=== PATIENT | female | born 1945 | race Caucasian/White ===

== ENCOUNTER → 2016-09-14 | Outpatient (CLI) | payer MEDICARE, OTHER | LOC: BFHH 11:56 | PROVIDERS: ATTEND Family Medicine | DX: K92.2 Gastrointestinal hemorrhage, unspecified (principal); I13.0 Hypertensive heart and chronic kidney disease with heart failure and stage 1 through stage 4 chronic kidney disease, or unspecified chronic kidney disease; N18.9 Chronic kidney disease, unspecified; I50.30 Unspecified diastolic (congestive) heart failure ==

== ENCOUNTER → 2017-01-04 | Outpatient (CLI) | payer MEDICARE, OTHER ==
--- NOTE | 2017-01-04 12:32 | MAM ---
History: Well woman exam. Date of exam: 01/04/2017// Services provided: Bilateral full field digital screening mammography. CAD, the images were reviewed with R2 computer aided detection. FINDINGS: Glandular tissue is scattered glandular contour. Comparison with 2013 exam. Stable asymmetry right breast. No dominant mass, architectural distortion or clustered microcalcification. IMPRESSION: Benign exam Recommendation: Routine annual mammography BIRAD CATEGORY: 2 BENIGN Electronically signed by: Shirley Cee MD 01/04/2017 12:31 PM CDT
== END ==
LOC: MAMMO 10:20
PROVIDERS: ATTEND Family Medicine
DX: Z12.31 Encounter for screening mammogram for malignant neoplasm of breast (principal)

== ENCOUNTER → 2017-03-28 | Outpatient (CLI) | payer MEDICARE, OTHER | LOC: GMAL 10:19 | PROVIDERS: ATTEND Family Medicine | DX: D51.3 Other dietary vitamin B12 deficiency anemia (principal); E55.9 Vitamin D deficiency, unspecified ==

== ENCOUNTER 2017-04-14 21:55 | Emergency (ER) | payer MEDICARE, OTHER ==
[2017-04-14] MEDS ORDERED: SODIUM CHLORIDE 0.9% 1000ML 1,000 ML IVS ONE (22:25)
--- NOTE | 2017-04-14 22:25 | ED.PDOC ---
History of Present Illness - General Chief Complaint: Abdominal Pain Stated Complaint: RUQ pain,itching Time Seen by Provider: 04/14/17 22:23 Information Source: patient Exam Limitations: no limitations - History of Present Illness Initial Comments: Brandy Suazo 72 y/o female stated that about 0830 h today started having sharp pains on her RLQ radn to her right shoulder.Took ex-lax thinking she is constipated and had 3 bowel movements but did not relieve above symptoms which got more steady and got worse .She was able to eat 3 meals today but did not worsen her pain or threw up.Denies also diarrhea stated her pain sometimes worse with taking deep breaths.She has history of cva,htn,heart disease. Abdominal Pain Onset Location: RUQ Pain Radiation: shoulder - right Quality: moderate, sharpness, steady Timing/Duration: 7-24 hours Improving Factors: nothing Worsening Factors: other - sometimes deep breaths Associated Symptoms: denies symptoms Review of Systems - Review of Systems Constitutional: States: no symptoms reported EENTM: States: no symptoms reported Respiratory: States: no symptoms reported Cardiology: States: no symptoms reported Gastrointestinal/Abdominal: States: see HPI Genitourinary: States: no symptoms reported Musculoskeletal: States: no symptoms reported Skin: States: no symptoms reported Past Medical History (General) - Patient Medical History Hx Seizures: No Hx Stroke: Yes Hx Dementia: No Hx Asthma: No Hx of COPD: Yes Hx Cardiac Disorders: Yes - stents Hx Congestive Heart Failure: No Hx Pacemaker: No Hx Hypertension: Yes Hx Thyroid Disease: No Hx Diabetes: No Hx Gastroesophageal Reflux: No Hx Renal Disease: No Hx Cancer: No Hx of HIV: No Hx Hepatitis C: No Hx MRSA: No Surgical History: Hysterectomy, other - hysterectomy,hernia repair - Vaccination History Hx Tetanus, Diphtheria Vaccination: No Hx Influenza Vaccination: Yes Hx Pneumococcal Vaccination: Yes - Social History Hx Tobacco Use: No Hx Chewing Tobacco Use: No Hx Alcohol Use: No Hx Substance Use: No Hx Substance Use Treatment: No Hx Depression: No Hx Physical Abuse: No Hx Emotional Abuse: No Hx Suspected Abuse: No - Female History Patient is a Female of Child Bearing Age (10 -59 yrs old): No Patient : No Family Medical History - Family History Father Family History: Unknown Living Status: Hx Family Hypertension: Yes - dad Hx Cardiac Disease: Yes - dad Hx Family Diabetes: Yes - dad Hx Family Cancer: Yes - dad-lungs; liver-mom Mother Living Status: Hx Cardiac Disease: Yes Hx Family;Other: nephrolithiasis Physical Exam - Physical Exam General Appearance: Alert, Anxious, No apparent distress Eyes, Ears, Nose, Throat Exam: PERRL/EOMI, normal ENT inspection Neck: non-tender, full range of motion, supple Respiratory: chest non-tender, lungs clear, normal breath sounds Cardiovascular/Chest: normal peripheral pulses, regular rate, rhythm, no murmur Peripheral Pulses: No deficit Gastrointestinal/Abdominal: normal bowel sounds, soft, no organomegaly, tenderness - RUQ no peritoneal signs Back Exam: normal inspection, no CVA tenderness, no vertebral tenderness Extremity: non-tender, normal inspection, no pedal edema, no calf tenderness Neurologic: no motor/sensory deficits, alert, oriented x 3, aphasia - expressive -deficit from previous cva Skin Exam: normal color, warm/dry Lymphatic: no adenopathy Progress - Progress Progress: 04/14/17 22:59 Vital Signs - 8 hr 04/14/17 22:04 Temperature 101 F H Pulse Rate [ 77 left] Respiratory 24 Rate Blood Pressure 125/87 [left] O2 Sat by Pulse 97 Oximetry 04/15/17 00:47 Recommend hospital admission but wants to go home but suggest need to follow up with Dr. Harrison his primary for md for HIDA SCAN to callup his office in am 12/[id number]/15/17 00:51 - Results/Orders Results/Orders: Laboratory Tests 04/14/17 04/14/17 04/14/17 22:29 22:29 22:29 WBC 10.8 RBC 4.05 L Hgb 12.2 Hct 36.8 MCV 90.9 MCH 30.1 MCHC 33.1 RDW 14.0 Plt Count 277 MPV 8.9 Absolute Neuts (auto) 7.80 H Absolute Lymphs (auto) 1.70 Absolute Monos (auto) 1.10 H Absolute Eos (auto) 0.10 Absolute Basos (auto) 0.10 Neutrophils % 72.3 Lymphocytes % 15.9 L Monocytes % 10.1 H Eosinophils % 0.7 L Basophils % 1.0 PT 27.5 H* INR 2.460 Sodium 136 Potassium 4.3 Chloride 104 Carbon Dioxide 22 Anion Gap 14.3 BUN 22 H Creatinine 1.03 BUN/Creatinine Ratio 21.4 H Random Glucose 111 H Serum Osmolality 276.0 Lactic Acid Calcium 8.4 Total Bilirubin 1.0 AST 16 ALT 14 Alkaline Phosphatase 116 Serum Total Protein 6.9 Albumin 2.9 L Globulin 4.0 H Albumin/Globulin Ratio 0.7 L Lipase 15 L Urine Color Urine Appearance Urine pH Ur Specific [place] Urine Protein Urine Glucose (UA) Urine Ketones Urine Blood Urine Nitrite Urine Bilirubin Urine Urobilinogen Ur Leukocyte Esterase Urine RBC Urine WBC Ur Epithelial Cells Urine Bacteria 04/14/17 04/14/17 23:00 23:00 WBC RBC Hgb Hct MCV MCH MCHC RDW Plt Count MPV Absolute Neuts (auto) Absolute Lymphs (auto) Absolute Monos (auto) Absolute Eos (auto) Absolute Basos (auto) Neutrophils % Lymphocytes % Monocytes % Eosinophils % Basophils % PT INR Sodium Potassium Chloride Carbon Dioxide Anion Gap BUN Creatinine BUN/Creatinine Ratio Random Glucose Serum Osmolality Lactic Acid 1.8 Calcium Total Bilirubin AST ALT Alkaline Phosphatase Serum Total Protein Albumin Globulin Albumin/Globulin Ratio Lipase Urine Color Yellow Urine Appearance Clear Urine pH 5.5 Ur Specific [place] 1.015 Urine Protein Negative Urine Glucose (UA) Negative Urine Ketones Negative Urine Blood Trace-intact H Urine Nitrite Negative Urine Bilirubin Negative Urine Urobilinogen 0.2 Ur Leukocyte Esterase Small H Urine RBC 3-5 H Urine WBC 3-5 H Ur Epithelial Cells 3-5 Urine Bacteria 1+ - EKG/XRAY/CT EKG: Sinus, Tachy, no ST T wave changes Comments: heart rate-101 XRAY: chest - no acute abnormalities CT: 2cm.gallstone 1cm.lesion (R) lobe liver dome suspect simple cyst CT Ordered: Yes - Abd/pelvis:stephan.perinephric stranding;small right pleural effusion Departure - Departure Clinical Impression: Abdominal pain Qualifiers: Abdominal location: right upper quadrant Qualified Code(s): R10.11 - Right upper quadrant pain Time of Disposition: 00:53 Disposition: Discharge to Home or Self Care Condition: Fair Departure Forms: ED Discharge - Pt. Copy, Patient Portal Self Enrollment Instructions: DI for Abdominal Pain-Adult Diet: low fat, low cholesterol, other - AVOID GREASY SPICY FOODS Referrals: Diego Harrison III, MD [Primary Care Provider] - 1-2 Weeks Prescriptions: RX: Promethazine HCl 25 mg PO Q6HRS PRN #20 tab PRN Reason: Nausea levoFLOXacin [Levaquin] 500 mg PO QDPC #7 tab Home Medications: Ambulatory Orders RX: Duloxetine HCl [Cymbalta] 60 mg PO DAILY 01/30/13 RX: Lisinopril 20 mg PO DAILY 01/30/13 RX: predniSONE [PredniSONE] 2 mg PO DAILY 01/30/13 RX: Warfarin Sodium [Coumadin] 6 mg PO DAILY 04/22/14 RX: amLODIPine BESYLATE [Norvasc] 5 mg PO DAILY 04/22/14 RX: Furosemide [Lasix] 40 mg PO DAILY 06/07/14 RX: Aspirin [Aspirin Adult Low Dose] 81 mg PO DAILY 04/28/16 RX: Montelukast Sodium 10 mg PO DAILY 04/28/16 Atorvastatin Calcium [Lipitor] 40 mg PO DAILY 07/18/16 Potassium Chloride [Potassium Chloride ER] 10 meq PO DAILY 07/18/16 RX: HYDROcodone 10MG/APAP 325MG [[place] 10/325] 1 tablet PO Q4HR PRN 04/14/17 RX: Pantoprazole Sodium 40 mg PO DAILY 04/14/17 RX: Promethazine HCl 25 mg PO Q6HRS PRN #20 tab 04/15/17 levoFLOXacin [Levaquin] 500 mg PO QDPC #7 tab 04/15/17 Additional Instructions: RETURN TO EMERGENCY ROOM NEEDED;Follow up with primary md Dr.J. Harrison in 04/15/2017 call for appointment
--- NOTE | 2017-04-14 22:48 | RAD ---
PROCEDURE: XR CHEST 1 VIEW HISTORY: pain COMPARISON: 06/30/2016 TECHNIQUE: Single projection of the chest was done. FINDINGS: The tip of the right-sided Mediport catheter terminates in the distal superior vena cava . There are no discrete airspace infiltrates, pneumothoraces or pleural effusions. The pulmonary vascularity is normal. The cardiomediastinal silhouette is stable. IMPRESSION: There is no acute pleural-parenchymal process seen in the imaged lung treviño. Location of Interpretation: Teleradiology Electronically signed by: Israel Villareal MD 04/14/2017 10:46 PM CDT Workstation: [id number]
[2017-04-14] MEDS ORDERED: PROCHLORPERAZINE INJ 10 MG/2 ML VIAL IV PRN (22:58)
[2017-04-14] MEDS ORDERED: MORPHINE SULFATE INJ 10 MG/ML VIAL IV ONE (22:58)
--- NOTE | 2017-04-15 00:21 | CT ---
EXAM: Abdomen/Pelvis w/Contrast CLINICAL INDICATION: 72-year-old female with generalized upper abdominal pain. COMPARISON: None. EXAMINATION: CT of the abdomen and pelvis was performed following intravenous administration of contrast. Oral contrast was not administered. Multiplanar reformatted images were provided. This exam was performed according to our departmental dose optimization program which includes use of automated exposure control, adjustment of the mA and/or kV according to patient size and/or use of iterative reconstruction technique. FINDINGS: Chest: Evaluation through the lung bases reveals trace right-sided pleural effusion without focal opacity, or pneumothorax. Heart size is within normal limits. No pericardial effusion. Small hiatal hernia or esophageal diverticulum. Abdomen and pelvis: The liver, gallbladder, pancreas, spleen, and bilateral adrenal glands are within normal limits. Central luminal focus of lamellated high density within the dependent gallbladder measuring 2 cm compatible with calculus. Subcentimeter focus of hypoattenuation present within the dome of the RIGHT lobe liver suggestive of simple cyst measuring 1 cm, however too small to accurately characterize. Bilateral perinephric stranding with slight haziness of the renal pelvis fat and areas of wedge-shaped hypoattenuation, particularly within the superior pole of the LEFT kidney raising the concern for pyelonephritis in the correct clinical setting. Punctate foci of calcification present throughout the spleen suggests sequela of prior granulomatous disease. The vessels reveal atherosclerotic calcification otherwise patent and normal in caliber. Inferior vena cava filter. No abdominopelvic lymph nodes are noted to be pathologically enlarged by CT measurement criteria. The bowel is within normal limits with extensive contrast material and fecal debris present throughout the large bowel. There is no abnormal bowel wall thickness or bowel dilation. No free air. No free abdominopelvic fluid collections. The appendix is nonvisualized. The osseous structures are revealed degenerative change. IMPRESSION: 1. Bilateral perinephric stranding with slight haziness of the renal pelvis fat and areas of wedge-shaped hypoattenuation, particularly within the superior pole of the LEFT kidney raising the concern for pyelonephritis in the correct clinical setting versus scarring or atypical appearance of renal cysts. 2. Small RIGHT pleural effusion. 3. 2 cm cholelithiasis. 4. Nonspecific hypoattenuating lesion showing 1 cm within the dome of the RIGHT lobe liver, suspected simple cyst however too small to accurately characterize. Electronically signed by: Carol Manley MD 04/15/2017 12:20 AM CDT Workstation: [id number]
[2017-04-15] MEDS ORDERED: levoFLOXacin 500MG IV 500 MG in PREMIX BAG 1 BAG IVPB ONE (00:41)
[2017-04-15] MEDS ORDERED: levoFLOXacin 500MG IV 100 ML IVPB ONE (00:44)
[2017-04-15] MEDS ORDERED: HYDROcodone 10MG/APAP 325MG 1 EA TAB PO ONE (00:52)
[2017-04-15 02:33] VITALS: BP 130/70; TEMP 98.9; O2SAT 94
== END 2017-04-15 01:50 | disposition home or self-care (01) ==
LOC: ER 21:55
DX: R10.11 Right upper quadrant pain (principal); J44.9 Chronic obstructive pulmonary disease, unspecified; I10 Essential (primary) hypertension; Z86.73 Personal history of transient ischemic attack (TIA), and cerebral infarction without residual deficits; Z98.61 Coronary angioplasty status
CPT/HCPCS: 36415; 71010; 74177; 80053; 81001; 83605; 83690; 85025; 85610; 87086; J0780; J1956; J2270; J7030

== ENCOUNTER 2017-04-16 07:09 | Inpatient (IN) | payer MEDICARE, OTHER ==
--- NOTE | 2017-04-16 07:23 | ED.PDOC ---
History of Present Illness - General Chief Complaint: Abdominal Pain Stated Complaint: Abdominal discomfort, fever Time Seen by Provider: 04/16/17 07:22 Information Source: patient Exam Limitations: no limitations - History of Present Illness Initial Comments: Brandy Suazo 72 y/o female stated that she cntinue to have ru q abdominal pain and fever since she was seen at [facility] #days ago .Unable to malke appointment with md yesterday.Work up done on her last visit had cholelithiasis but no obstruction also small liver cyst dome of lever,and bilateral perinephric stranding left >right. Abdominal Pain Onset Location: RUQ Pain Radiation: shoulder Quality: intermittent, sharpness, steady Timing/Duration: other - 3 days ago Improving Factors: nothing Worsening Factors: nothing Associated Symptoms: fever/chills Review of Systems - Review of Systems Constitutional: States: no symptoms reported EENTM: States: no symptoms reported Respiratory: States: no symptoms reported Cardiology: States: no symptoms reported Gastrointestinal/Abdominal: States: see HPI Genitourinary: States: no symptoms reported Musculoskeletal: States: no symptoms reported Skin: States: no symptoms reported Endocrine: States: no symptoms reported Hematologic/Lymphatic: States: no symptoms reported Past Medical History (General) - Patient Medical History Hx Seizures: No Hx Stroke: Yes Hx Dementia: No Hx Asthma: No Hx of COPD: Yes Hx Cardiac Disorders: Yes - stents Hx Congestive Heart Failure: No Hx Pacemaker: No Hx Hypertension: Yes Hx Thyroid Disease: No Hx Diabetes: No Hx Gastroesophageal Reflux: No Hx Renal Disease: No Hx Cancer: No Hx of HIV: No Hx Hepatitis C: No Hx MRSA: No Surgical History: other - hysterectomy,hernia repair,cardiac stents - Vaccination History Hx Tetanus, Diphtheria Vaccination: No Hx Influenza Vaccination: Yes Hx Pneumococcal Vaccination: Yes - Social History Hx Tobacco Use: No Hx Chewing Tobacco Use: No Hx Alcohol Use: No Hx Substance Use: No Hx Substance Use Treatment: No Hx Depression: No Hx Physical Abuse: No Hx Emotional Abuse: No Hx Suspected Abuse: No - Activities of Daily Living Grooming Ability: Independent Eating (Feeding) Ability: Independent Toileting Ability: Independent - Female History Patient : No Family Medical History - Family History Father Family History: Unknown Living Status: Hx Family Hypertension: Yes - dad Hx Cardiac Disease: Yes - dad Hx Family Diabetes: Yes - dad Hx Family Cancer: Yes - dad-lungs; liver-mom Mother Living Status: Hx Cardiac Disease: Yes Hx Family;Other: nephrolithiasis Physical Exam - Physical Exam General Appearance: Alert, Comfortable, No apparent distress Eyes, Ears, Nose, Throat Exam: PERRL/EOMI, normal ENT inspection, TMs normal, pharynx normal Neck: non-tender, supple, normal inspection Respiratory: chest non-tender, lungs clear, normal breath sounds Cardiovascular/Chest: normal peripheral pulses, regular rate, rhythm, no gallop , no murmur Peripheral Pulses: No deficit Gastrointestinal/Abdominal: normal bowel sounds, non tender, soft, tenderness - right upper quadrant Back Exam: normal inspection, no CVA tenderness, no vertebral tenderness Extremity: normal range of motion Neurologic: screen repairer crusher II-XII nml as tested, no motor/sensory deficits, alert, normal mood/affect, oriented x 3 Progress - Progress Progress: 04/16/17 08:24 Vital Signs - 8 hr 04/16/17 07:11 Temperature 99.4 F Pulse Rate [ 102 H Right Radial] Respiratory 22 Rate Blood Pressure 121/64 [Right Arm] O2 Sat by Pulse 95 Oximetry - Results/Orders Results/Orders: Laboratory Tests 04/16/17 04/16/17 04/16/17 07:59 07:59 07:59 WBC 8.7 RBC 3.79 L Hgb 11.5 L Hct 34.7 L MCV 91.6 MCH 30.3 MCHC 33.0 RDW 14.0 Plt Count 233 MPV 8.9 Absolute Neuts (auto) 5.90 Absolute Lymphs (auto) 1.40 Absolute Monos (auto) 1.10 H Absolute Eos (auto) 0.20 Absolute Basos (auto) 0.10 Neutrophils % 68.0 Lymphocytes % 16.2 L Monocytes % 12.5 H Eosinophils % 2.6 Basophils % 0.7 PT INR Sodium 136 Potassium 4.3 Chloride 105 Carbon Dioxide 23 Anion Gap 12.3 BUN 25 H Creatinine 1.31 H BUN/Creatinine Ratio 19.1 Random Glucose 122 H Serum Osmolality 277.7 Lactic Acid 1.5 Calcium 8.4 Total Bilirubin 1.5 H D AST 15 ALT 13 Alkaline Phosphatase 123 H Serum Total Protein 6.6 Albumin 2.6 L Globulin 4.0 H Albumin/Globulin Ratio 0.7 L Lipase 04/16/17 04/16/17 07:59 07:59 WBC RBC Hgb Hct MCV MCH MCHC RDW Plt Count MPV Absolute Neuts (auto) Absolute Lymphs (auto) Absolute Monos (auto) Absolute Eos (auto) Absolute Basos (auto) Neutrophils % Lymphocytes % Monocytes % Eosinophils % Basophils % PT 21.2 H* INR 1.890 Sodium Potassium Chloride Carbon Dioxide Anion Gap BUN Creatinine BUN/Creatinine Ratio Random Glucose Serum Osmolality Lactic Acid Calcium Total Bilirubin AST ALT Alkaline Phosphatase Serum Total Protein Albumin Globulin Albumin/Globulin Ratio Lipase [address] Rosales went to check and examined patient as well as reviewed ct abd/pelvis taken 3 days ago and labs today talked to patient and stated he will get in touch woth rail transportation operator hospitalist for admit. Departure - Departure Clinical Impression: snf (current) use of anticoagulants Abdominal pain Qualifiers: Abdominal location: right upper quadrant Qualified Code(s): R10.11 - Right upper quadrant pain Cholelithiasis NOS Qualifiers: Cholelithiasis location: gallbladder Cholecystitis presence: without cholecystitis Biliary obstruction: without biliary obstruction Qualified Code(s) : K80.20 - Calculus of gallbladder without cholecystitis without obstruction Time of Disposition: 10:14 Disposition: Admit Patient Condition: Fair Departure Forms: Patient Portal Self Enrollment Referrals: Diego Harrison III, MD [Primary Care Provider] - 1-2 Weeks Home Medications: Ambulatory Orders Duloxetine HCl [Cymbalta] 60 mg PO DAILY 01/30/13 Lisinopril 20 mg PO DAILY 01/30/13 predniSONE [PredniSONE] 2 mg PO DAILY 01/30/13 Warfarin Sodium [Coumadin] 6 mg PO DAILY 04/22/14 amLODIPine BESYLATE [Norvasc] 5 mg PO DAILY 04/22/14 Furosemide [Lasix] 40 mg PO DAILY 06/07/14 Aspirin [Aspirin Adult Low Dose] 81 mg PO DAILY 04/28/16 Atorvastatin Calcium [Lipitor] 40 mg PO DAILY 07/18/16 Potassium Chloride [Potassium Chloride ER] 10 meq PO DAILY 07/18/16 HYDROcodone 10MG/APAP 325MG [[place] 10/325] 1 tablet PO Q4HR PRN 04/14/17 Promethazine HCl 25 mg PO Q6HRS PRN #20 tab 04/15/17 levoFLOXacin [Levaquin] 500 mg PO QDPC #7 tab 04/15/17 Decision To Admit - Decistion To Admit Decision to Admit Reason: Admit from ER Decision to Admit Date: 04/16/17 - D/W Dr. Rosales for admit Decision to Admit Time: 10:39
[2017-04-16] MEDS ORDERED: PROMETHAZINE HCL INJ 25 MG/ML VIAL IM ONE (07:24)
[2017-04-16] MEDS ORDERED: MORPHINE SULFATE INJ 10 MG/ML VIAL IV ONE (07:24)
[2017-04-16] MEDS ORDERED: HEPARIN SODIUM 100 U/ML 5 ML SYG IV ONE (07:52)
[2017-04-16] MEDS ORDERED: SODIUM CHLORIDE 0.9% 1000ML 1,000 ML IVS ONE (08:26)
--- NOTE | 2017-04-16 10:43 | HP ---
SUPERVISING PHYSICIAN: Reji Stallworth M.D. CHIEF COMPLAINT: Abdominal pain. HISTORY OF PRESENT ILLNESS: Ms. Suazo is a 72 year-old female patient that presented to the Emergency Room today after she continued to have right upper quadrant pain and fever since she was last seen in the E. . 48 hours previously for similar symptoms. She was supposed to go after she left the . . this previous visit to see her primary care provider on Tuesday but was unable to do so. She was reporting some diffuse abdominal pain but no fever or chills. She had a CT of the abdomen on previous visit as well as the pelvis with IV contrast that revealed no laboratory changes. There were some changes consistent with pyelonephritis bilaterally. She was noted to have a gallstone and her right colon was filled with a large amount of stool. She was denying any fevers on admission. Laboratory studies today in the Emergency Department showed a white count of 8.7 with normal differential. Hemoglobin 11.5, hematocrit 34.7, platelet count 233,000. Chemistries showed normal electrolytes with potassium 4.3, BUN was elevated at 25 with creatinine 1.31. Bilirubin as well was elevated at 1.5, magnesium was decreased at 1.7. She also had an elevated alkaline phosphatase. Urinalysis on previous admission on 04/14/17 at the [facility] showed on the microscopic 1+ bacteria with 3 to 5 WBCs. Culture is still pending. She was sent home at that time on Levaquin which she has had 2 doses of. Given the persistence of her abdominal pains and concerns for developing bilateral pyelonephritis, Dr. Jean-Baptiste, . . physician, consulted Dr. Rosales in the Emergency Department who then recommended the patient be admitted for further treatment and evaluation, and close monitoring. PAST MEDICAL HISTORY: 1. Chronic obstructive pulmonary disease diagnosed first in 2010. 2. Gastroesophageal reflux disease. 3. Raynaud's syndrome with ischemic cerebrovascular accident in the left basal ganglia with a hemorrhage extending into the left MCA following TPA administration in April 2013. 4. History of deep venous thrombosis in April 2013 requiring IVC filter placement. 5. Congestive heart failure, chronic, diastolic dysfunction with last echocardiogram noted to be on 08/14/15 with an ejection fraction of 60%. 6. Chronic constipation secondary to chronic opioid medication usage. 7. Anxiety and depression. PAST SURGICAL HISTORY: 1. Hysterectomy. 2. Hiatal hernia repair in 2009. 3. Right shoulder rotator cuff in 2008. 4. Left rotator cuff repair. 5. Subacromial depression. 6. Distal clavicle resection in April 2012. 7. IVC filter placement in April 2013. 8. Cataract surgery in 2013. 9. Total knee arthroplasty of the right knee April 2014. CURRENT MEDICATIONS: 1. Prednisone 10 mg daily. 2. Course of Levaquin 500 mg, only received 2 doses. 3. Norvasc 5 mg daily. 4. Coumadin 6 mg daily. 5. Promethazine 25 mg 2 every 6 hours as needed for nausea. 6. Potassium chloride extended release 10 mEq. 7. Lisinopril 20 mg daily. 8. Elgin 10/325 one tablet every 4 hours p.r.n. for pain. 9. Lasix 40 mg daily. 10. Cymbalta 60 mg daily. 11. Lipitor 40 mg daily. 12. Daily aspirin 81 mg. ALLERGIES: NO KNOWN DRUG ALLERGIES. FAMILY HISTORY: Both father and mother are . Father at age 70 from myocardial infarction and lung cancer. Mother at 77 from lung cancer. 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 She has a history of past smoking 1 to 2 packs per day for 45 years but stopped in 2008. Currently she is a nondrinker. REVIEW OF SYSTEMS: CONSTITUTIONAL: Denies any weakness, dizziness or general malaise. HEENT: No reported sinus congestion. RESPIRATORY: Does note she has a cough that is nonproductive and has had some mild shortness of breath. CARDIOVASCULAR: She has a history of congestive heart failure but no reported lower extremity edema, chest pains, palpitations or syncopal episodes. GASTROINTESTINAL: As noted in the History of Present Illness, abdominal pains with moderate constipation. GENITOURINARY: Denies any dysuria or any other urinary complaints. NEUROLOGIC: Denies any dizziness, weakness, focalizing or localizing neurologic deficits. She does have a history of CVA with some right sided weakness previously and utilizes a walker. PHYSICAL EXAMINATION: VITAL SIGNS: Temperature 97.8, pulse 77, blood pressure 137/81, respirations 16 , satting 97% on room air. Admission weight 124.1 kg. GENERAL: The patient appears to be in no acute distress and is comfortable. She is well nourished and well hydrated, moderately obese. HEENT: Tympanic membranes are clear bilaterally. Oropharynx is pink and moist without any lesions. NECK: Supple, non-tender with full range of motion. There was no jugular venous distention noted. CHEST: Lungs were diminished towards the bases laterally and toward the posterior aspect with some mild inspiratory and expiratory wheezing. BACK: She has bilateral CVA tenderness. ABDOMEN: Soft, obese, mildly distended with some diffuse tenderness more so on the right side with some right upper quadrant pain as well extending down to the right lower quadrant. Bowel sounds were normal. EXTREMITIES: No clubbing, cyanosis or edema. NEUROLOGIC: She is alert and oriented times three. Facial features were symmetrical. Extraocular movements are within normal limits. Cranial nerves II -XII are grossly intact. LABORATORY: CBC showed normal white count at 8.7, hemoglobin 11.5, hematocrit 34.7, platelet count 233,000. Differential showed to be without a left shift. Coagulation studies showed 21.2 PT with an INR of 1.89. Chemistries revealed normal electrolytes with potassium 4.3, BUN was slightly elevated at 25, creatinine 1.3. Lactic acid was 1.5. Total bilirubin was slightly elevated at 1.5 as well as alkaline phosphatase at 123. Troponin, magnesium and BNP were pending. Lipase was 22. MICROBIOLOGY: Urine culture is pending both from 04/14/17 in the E. R. as well as on current admission with the patient having been on antibiotics for 48 hours prior to urine collection. She has 2 sets of blood cultures that are pending. RADIOLOGY: Chest x-ray was pending. She had an abdominal and pelvic CT on 11/26 and per radiology interpretation there was noted bilateral perinephric stranding with slight haziness of the renal pelvis, areas of wedge shaped hypoattenuation particularly in the left kidney raising concerns for pyelonephritis. Also of note was a right small pleural effusion as well as 2 cm cholelithiasis. ASSESSMENT: 1. Abdominal pain right upper quadrant with some cholecystitis as noted on previous CT study as well as concerns for developing pyelonephritis with the patient having been on antibiotics for 48 hours and having failed to improve symptomatically with cultures pending. 2. Obstipation as noted on abdominal CT scan in a patient with a chronic history of constipation secondary to opioid medication. 3. Chronic obstructive pulmonary disease with some concern for exacerbation with the patient having some inspiratory and expiratory wheezing on admission. 4. Gastroesophageal reflux disease. 5. History of Raynaud's syndrome with a previous ischemic cerebrovascular accident in the left basal ganglia and hemorrhage extending to the left MCA after she had TPA administration in April 2013. 6. History of deep venous thrombosis in April 2013 with IC filter placement and currently on Coumadin. 7. Chronic congestive heart failure, diastolic dysfunction with last echocardiogram in 2014 with ejection fraction noted to be 60% with no obvious signs of exacerbation on admission. 8. Anxiety and depression. 9. Obesity with a body mass index of 45.5 kg. PLAN: The patient will be admitted to the hospital. Will get a consultation by Dr. Rosales to help further manage the patient's condition and management of abdominal pains. She has been on Levaquin. Will continue this dosage renally dosed given her current creatinine and renal function. Will await urine cultures. She will be on a clear liquid diet with morphine and Zofran as needed for pain and nausea. In efforts to help with the obstipation by way of catharsis, will start her with a dose of Milk of Magnesia followed-up with a soap suds enema. Will anticipate length of stay to be 2 to 3 days. Until then , continue to monitor and treat appropriately. #[id number] [facility]
--- NOTE | 2017-04-16 10:56 | CONS ---
DATE OF CONSULTATION: 04/16/17 HISTORY OF PRESENT ILLNESS: The patient is a 72 year-old female who was in the Emergency Room 2 days ago, the 3rd, with right sided abdominal pain and some diffuse abdominal pain without fever or chills. CT scan of the abdomen and pelvis was performed with IV contrast which revealed no inflammatory changes, although there were some changes consistent with pyelonephritis bilaterally. She also had a gallstone and her right colon was filled with stool. She is a relatively poor historian due to a previous stroke and her is not with her currently. The patient denies fever or chills. States that it hurts to take a deep breath, it hurts to move. There is no history of hepatitis or jaundice according to the patient. The patient does have a port I believe only for poor peripheral vascular access in the history of multiple hospitalizations. PAST MEDICAL HISTORY: 1. No significant abdominal pathology. 2. Urinary tract infections in the past. 3. Stroke, is on Coumadin for that. 4. Right sided venous access port. CURRENT MEDICATIONS: Listed in the nursing records. ALLERGIES: NO KNOWN DRUG ALLERGIES. FAMILY HISTORY: Noncontributory. REVIEW OF SYSTEMS: Again, no history of fatty food intolerance, hepatitis, jaundice, change in her bowel habits, specifically no melenic stools, blood per rectum and she has not vomited blood. She has noticed no blood in her urine. She does have problems with her memory associated with her stroke. PHYSICAL EXAMINATION: VITAL SIGNS: Afebrile and normotensive. GENERAL: The patient is awake, alert, cooperative and in mild to moderate distress. HEENT: Reveals the sclera to be nonicteric. Mucous membranes are moist. NECK: Without adenopathy. BACK: Bilateral CVA tenderness. CHEST: Equal breath sounds anteriorly. ABDOMEN: Mildly distended, diffusely tender, worse in the right side, right upper quadrant worse than right lower quadrant. Bowel tones are present. PELVIC AND RECTAL: Examinations are deferred. EXTREMITIES: Without clubbing, cyanosis or edema. LABORATORY: Normal white count and hemoglobin. Creatinine is noted to be 1.3. Liver functions reveal mildly elevated alkaline phosphatase and bilirubin. CT scan from 2 days ago reveals no inflammatory process involving the gallbladder, but at least a single large stone. No dilation of the duct. There is perinephric stranding associated with the left kidney and somewhat on the right side. She has a small right pleural effusion and she has a large amount of stool, especially in the right colon. Urinalysis reveals 3 to 5 white cells and red cells, 2 to 3+ bacteria, culture is pending. IMPRESSION: 1. Abdominal pain, bilateral CVA tenderness, abnormal CT scan, and obstipation. PLAN: I believe that the patient should be admitted, started on antibiotics to cover her urine and work on a catharsis from both above and below. Await the results of the urine culture. #[id number] [facility]
[2017-04-16] MEDS ORDERED: MAGNESIUM HYDROXIDE 30 ML UD PO ONE (11:23)
[2017-04-16] MEDS ORDERED: ONDANSETRON INJ 4 MG/2 ML VIAL IV PRN (11:29)
[2017-04-16] MEDS ORDERED: MAGNESIUM HYDROXIDE 30 ML UD PO PRN (11:29)
[2017-04-16] MEDS ORDERED: ACETAMINOPHEN 325 MG TAB PO PRN (11:29)
[2017-04-16] MEDS ORDERED: levoFLOXacin 250MG IV 250 MG in PREMIX BAG 1 BAG IVPB SCH (11:30)
[2017-04-16] MEDS ORDERED: IV SET AND CAP CHANGE INJ INJ SCH (11:30)
[2017-04-16] MEDS ORDERED: levoFLOXacin 250MG IV 50 ML IVPB ONE (11:39)
[2017-04-16] MEDS ORDERED: LEVALBUTEROL NEBS 1.25 MG/3 ML VIAL NEB PRN (12:35)
--- NOTE | 2017-04-16 13:33 | RAD ---
PROCEDURE: Chest,2 Views CLINICAL HISTORY: RUQ abdominal pain INDICATION: Same as above COMPARISON: 04/14/2017 TECHNIQUE: PA and and lateral chest radiographs were obtained. FINDINGS: The right-sided Mediport catheter is stable. There is presence of small right-sided pleural effusion and bilateral vascular congestion There are no pneumothoraces or airspace infiltrates The cardiomediastinal silhouette is unremarkable for patient's age and sex. IMPRESSION: There is presence of small right-sided pleural effusion and bilateral vascular congestion Electronically signed by: Israel Villareal MD 04/16/2017 1:31 PM CDT Workstation: [id number]
[2017-04-16] MEDS: KCL 20MEQ/0.45% NS 1,000 ML IVS PRN (15:55)
[2017-04-16] MEDS: LEVALBUTEROL NEBS 1.25 MG/3 ML VIAL NEB SCH ×2 (15:59→23:45)
[2017-04-16] MEDS: MORPHINE SULFATE INJ 10 MG/ML VIAL IV PRN ×2 (17:08→22:11)
[2017-04-16] MEDS: SODIUM CHLORIDE 0.9% (FLUSH) 10 ML SYG IV PRN (22:11)
[2017-04-17] MEDS: MORPHINE SULFATE INJ 10 MG/ML VIAL IV PRN (06:42)
[2017-04-17] MEDS: SODIUM CHLORIDE 0.9% (FLUSH) 10 ML SYG IV PRN (06:42)
[2017-04-17] MEDS: KCL 20MEQ/0.45% NS 1,000 ML IVS PRN ×2 (07:53→23:54)
[2017-04-17] MEDS: LEVALBUTEROL NEBS 1.25 MG/3 ML VIAL NEB SCH ×3 (08:14→20:44)
[2017-04-17] MEDS ORDERED: diphenhydrAMINE HCL 25 MG CAP ONE (08:48)
[2017-04-17] MEDS ORDERED: diphenhydrAMINE HCL 25 MG CAP PO ONE (08:50)
[2017-04-17] MEDS ORDERED: MAGNESIUM HYDROXIDE 30 ML UD PO ONE (09:24)
[2017-04-17] MEDS: levoFLOXacin 500 MG TAB PO SCH (09:49)
--- NOTE | 2017-04-17 10:21 | RAD ---
PROCEDURE: Abdomen Series Clinical History: constipation Indication: Same as above Comparison: CT of the abdomen and pelvis done on 04/14/2017 Technique: Two views of the abdomen and pelvis were done. In addition single frontal projection of the chest was done Findings: The tip of the right-sided Mediport catheter terminates in the distal superior vena cava. There is presence of mild right basilar infiltrate/atelectasis and probable tiny right-sided pleural effusion. Note is made of an IVC filter in the mid abdomen. There is no gross evidence of free air in the abdomen or the pelvis . The small and large bowel gas pattern does not show any evidence of obstruction, ileus or bowel wall thickening. There is no visualization of radiopaque calculi in the outline of the urinary tract. There is no significant constipation Impression: Normal bowel gas pattern There is presence of mild right basilar infiltrate/atelectasis and probable tiny right-sided pleural effusion. Electronically signed by: Israel Villareal MD 04/17/2017 10:19 AM CDT Workstation: [id number]
[2017-04-17] MEDS ORDERED: WARFARIN SODIUM 6 MG PO SCH (16:45)
--- NOTE | 2017-04-17 16:46 | PCM.CORE ---
Physician DVT/VTE - Prophylaxis Currently: Patient already on anticoagulation therapy - Nurse DVT Assessment & Total Each Risk Factor Represents 3 Points: Hx of DVT/PE, Medical PT with Hx of CO, CHF, Severe infection/sepsis Each Risk Factor Represents 2 Points: Age 60-74 Each Risk Factor is 1 Point: Obesity (BMI >25) DVT Assessment Score: 9 - 5 or more Very High Risk Treatments: Early Ambulation *, Sequential Compression Device Pharmacological: Warfarin daily
[2017-04-17] MEDS ORDERED: WARFARIN SODIUM 3 MG TAB ONE (17:20)
[2017-04-17] MEDS ORDERED: WARFARIN SODIUM 3 MG TAB PO SCH (17:30)
--- NOTE | 2017-04-17 18:43 | PN ---
DATE: 04/17/17 SUPERVISING PHYSICIAN: Reji Stallworth M.D. SUBJECTIVE: The patient notes her pain is much less than yesterday. She did have good results with Milk of Magnesia and had several bowel movements that were large in nature. She remains afebrile and is tolerating antibiotic therapy without any complications. OBJECTIVE: VITAL SIGNS: Temperature 97.7, pulse 94, blood pressure 145/66, respirations 16, satting 96% on room air. I's and O's show a positive balance of 2002 with 2270 in, 275 out, although she has had several voids that were not measured. Weight is 126.9 kg. CHEST: Lungs are clear to auscultation. There is no notable wheezing. She is diminished bilaterally towards the bases. HEART : Regular rate and rhythm. ABDOMEN: Obese, soft with some continued mild tenderness noted over the right upper quadrant on deep palpation, but no rebound tenderness. EXTREMITIES: No clubbing, cyanosis or edema. NEUROLOGIC: She is alert and oriented times three. LABORATORY: Normal white count at 7.6, hemoglobin 10.3, hematocrit 31.0, platelet count is 236,000. Differential shows to be within normal limits. Chemistries show normal electrolytes with potassium 4.3, BUN 24, creatinine 1.29. Bilirubin remains slightly elevated at 1.5. Other liver functions showed to be within normal limits. RADIOLOGY: Repeat abdominal x-ray today per radiology interpretation shows normal bowel gas pattern and the presence of mild right basilar infiltrate, probable tiny right sided pleural effusion. ASSESSMENT: 1. Abdominal pain right upper quadrant with some cholecystitis as noted on previous CT study with concerns initially for developing pyelonephritis in a patient having been on recent antibiotic therapy for the last 48 hours, but having failed to improve symptomatically with culture results still pending. 2. Obstipation as noted on abdominal CT scan in a patient with a chronic history of constipation secondary to opioid medications contributing to some of her right upper quadrant pain showing good catharsis with Milk of Magnesia. 3. Chronic obstructive pulmonary disease with some mild exacerbation with the patient having some initially inspiratory and expiratory wheezing on admission but showing good improvement with bronchodilator therapy. 4. Gastroesophageal reflux disease. 5. History of Raynaud's syndrome with a previous ischemic cerebrovascular accident in the left basal ganglia and hemorrhage extending to the left MCA after she had TPA administration in April of 2013. 6. History of deep venous thrombosis in 2012 with an ICV filter placement on chronic Coumadin therapy. 7. Chronic congestive heart failure, diastolic dysfunction with last echocardiogram in 2014 showing an ejection fraction noted to be 60% with no obvious signs of exacerbation on this admission. 8. Anxiety and depression. 9. Obesity with body mass index of 45.5. PLAN: The patient will be advanced to a low fat diet. Will continue with Milk of Magnesia as per Dr. Rosales's directions, and will continue to follow the patient and monitor closely. Will await final culture results and continue with antibiotic therapy with Levaquin and plan to transition her to p.o. Levaquin today. Will plan to monitor Coumadin with a repeat PT and INR in the morning. Anticipate discharge possibly tomorrow or the next. Until then, continue to monitor and treat appropriately. #[id number] [facility]
[2017-04-18 02:29] VITALS: TEMP 98
[2017-04-18 05:26] VITALS: BP 129/73; O2SAT 96
--- NOTE | 2017-04-18 07:14 | RAD ---
EXAM DESCRIPTION: Abdomen Flat Upright CLINICAL HISTORY: 72 years Female, constipaton COMPARISON: None. FINDINGS: A right-sided Mediport catheter is present but only partially visualized. There is a probable small right-sided pleural effusion. No free suboptimally gas or intra-abdominal air-fluid level. An IVC filter is present. There is a moderate amount of stool and gas scattered throughout the colon without small bowel dilation. No suspicious intra-abdominal calcification or mass. Degenerative changes in the lumbar spine including mild convex leftward scoliosis. IMPRESSION: Moderate amount of colonic stool and gas, but no obstruction, pneumoperitoneum or other acute intra-abdominal abnormality. Tiny right pleural effusion. Electronically signed by: Vaughn Bella MD 04/18/2017 7:13 AM CDT Workstation: [id number]
[2017-04-18] MEDS: levoFLOXacin 500 MG TAB PO SCH (08:28)
[2017-04-18] MEDS: LEVALBUTEROL NEBS 1.25 MG/3 ML VIAL NEB SCH (08:32)
[2017-04-18] MEDS ORDERED: ASPIRIN EC 81 MG TAB PO SCH (09:00)
[2017-04-18] MEDS ORDERED: predniSONE 1 MG TAB PO SCH (09:00)
[2017-04-18] MEDS ORDERED: ATORVASTATIN 20 MG TAB PO SCH (09:00)
[2017-04-18] MEDS ORDERED: LISINOPRIL 10 MG TAB PO SCH (09:00)
[2017-04-18] MEDS ORDERED: FUROSEMIDE 40 MG TAB PO SCH (09:00)
[2017-04-18] MEDS ORDERED: DULoxetine HCL 30 MG CAP PO SCH (09:00)
[2017-04-18] MEDS ORDERED: amLODIPine BESYLATE 5 MG TAB PO SCH (09:00)
[2017-04-18] MEDS ORDERED: POTASSIUM CHLORIDE 10 MEQ TAB PO SCH (09:00)
--- NOTE | 2017-04-18 13:50 | DS ---
DISCHARGE DIAGNOSIS: 1. Acute abdominal pain, primarily right upper quadrant with evidence of cholecystitis noted o a prior CT scan, but also evidence radiographically of pyelonephritis, yet no culture positivity noted. 2. Fecal impaction with obstipation, possibly contributing to abdominal discomfort, significantly assisted by bowel movements. 3. Chronic obstructive pulmonary disease with some mild exacerbation recently, showing improvement with bronchodilator therapy. 4. History of gastroesophageal reflux disease. 5. History of Raynaud's syndrome with a history of previous ischemic cerebrovascular occlusion involving the left basal ganglia and hemorrhage extending to the left middle cerebral artery after she had TPA administration in April of 2013. 6. History of deep venous thrombosis with an IVC filter placed, currently on Coumadin therapy. 7. Chronic congestive heart failure with diastolic dysfunction with last echocardiogram in 2014 having an ejection fraction noted to be 60%. 8. Chronic anxiety and depression. 9. Chronic obesity with body mass index over 45. HISTORY OF PRESENT ILLNESS: This 72-year-old, white female was admitted to the hospital via the Emergency Room because of abdominal pain, primarily located in the right upper quadrant. The discomfort worsened to the point of concern with obstipation as well as gallbladder disease as well as possible underlying pyelonephritis requiring further evaluation and support. The patient was admitted to the hospital with close clinical followup necessary. She was treated with parenteral antibiotic therapy pending culture results. She was admitted for GI rest, which was changed to slowly advancing of diet as tolerated prior to her discharge on the day of discharge. LABORATORY: White count remained normal with hemoglobin dropping from 11.5 to 9.9 with 58% neutrophils. INR 2 on Coumadin therapy. Chemistries showed electrolytes within normal limits, BUN 25 decreasing to 20, creatinine down to 1.12 at discharge. Calcium 8.1, magnesium 1.7, bilirubin 1.5 down to 0.8 with normal enzymes at the time of discharge. Troponin 0. Beta natriuretic peptide 19. Albumin 2.5, lipase 22. Urinalysis showed a trace of leukocyte esterase. Urine, blood and sputum cultures were negative. RADIOLOGY: Chest x-ray showed a small right sided pleural effusion. Abdominal x-ray showed normal gas pattern. HOSPITAL COURSE: The patient was feeling much improved on the day of discharge after having some significant bowel movements on the previous day. She was ambulating and tolerating her soft diet quite well and was ready to have continued followup in the outpatient clinic. PLAN: The patient will be discharged home to have followup with Dr. Harrison in the clinic in the next 7 to 10 days. Drink adequate fluids of 1 to 1-1/2 quarts per day, yet avoid drinking excessive fluids which would be over that amount. Observe weight changes on a weekly basis. Avoid constipation. May try MiraLAX to assist with preventing constipation. May try yogurt as a probiotic daily. She will have continued followup with Dr. Harrison and Dr. Rosales because of the possibility of the underlying cholecystitis contributing to some of her symptoms. Return if not improving. [facility][id number] [facility]
== END 2017-04-18 12:00 | disposition home or self-care (01) | DRG 445 ==
LOC: ER 07:09 → MS 10:42 → UNDOADMOB 10:42 → MS 10:43 → OBSVTOIN 10:43 → INTOOBSV 04-17 10:42 → UNDODISOB 04-18 12:00
PROVIDERS: ADMIT Nurse Practitioner Family; ATTEND Emergency Medicine
DX: K81.9 Cholecystitis, unspecified (principal); N12 Tubulo-interstitial nephritis, not specified as acute or chronic; J44.1 Chronic obstructive pulmonary disease with (acute) exacerbation; I50.32 Chronic diastolic (congestive) heart failure; Z68.42 Body mass index [BMI] 45.0-49.9, adult; K56.41 Fecal impaction; K21.9 Gastro-esophageal reflux disease without esophagitis; F41.9 Anxiety disorder, unspecified; F32.9 Major depressive disorder, single episode, unspecified; E66.9 Obesity, unspecified; K59.03 Drug induced constipation; T40.2X5A Adverse effect of other opioids, initial encounter; Y92.009 Unspecified place in unspecified non-institutional (private) residence as the place of occurrence of the external cause; Z96.651 Presence of right artificial knee joint; Z79.52 Long term (current) use of systemic steroids; Z79.01 Long term (current) use of anticoagulants; Z79.82 Long term (current) use of aspirin; Z79.899 Other long term (current) drug therapy; Z87.891 Personal history of nicotine dependence; Z86.718 Personal history of other venous thrombosis and embolism; Z86.73 Personal history of transient ischemic attack (TIA), and cerebral infarction without residual deficits; Z95.828 Presence of other vascular implants and grafts

== ENCOUNTER → 2017-05-05 | Outpatient (CLI) | payer MEDICARE, OTHER ==
--- NOTE | 2017-05-09 08:25 | US ---
Study: Abdominal ultrasound. Indication: GENERALIZED ABDOMINAL PAIN Comparison: None Technique: Multiplanar, multi sequence sonogram of the abdomen obtained. Findings: The liver is normal in echogenicity without discrete mass. Multiple gallstones present measuring up to 2 cm. No gallbladder wall thickening or pericholecystic edema. Sonographic Wood sign positive. No intrahepatic biliary ductal dilatation. The common bile duct measures 3 mm in diameter. The bilateral kidneys are appropriate in echogenicity without hydronephrosis or nephrolithiasis. 4.4 cm left renal cyst. The visualized portions of the aorta and inferior vena cava are normal. The pancreas unremarkable. The spleen is normal. Impression: Cholelithiasis with a positive sonographic Wood sign. Acute cholecystitis should be considered. Electronically signed by: Wilian Davalos MD 05/09/2017 8:24 AM CDT
== END ==
LOC: US 14:48
PROVIDERS: ATTEND Family Medicine
DX: K80.20 Calculus of gallbladder without cholecystitis without obstruction (principal)

== ENCOUNTER → 2017-05-12 | Outpatient (CLI) | payer MEDICARE, OTHER ==
--- NOTE | 2017-05-13 11:27 | NM ---
EXAM DESCRIPTION: Hepatobiliary w/CCK CLINICAL HISTORY: RUQ PN COMPARISON: Ultrasound abdomen 05/05/2017. TECHNIQUE: Patient was given 8.0 mCi of technetium 99 M mebrofenin (Choletec) radiopharmaceutical IV. Anterior gamma camera images were obtained of the right upper quadrant at one minute intervals for 42 minutes . The patient was then given fatty meal, containing 30 g of fat. Gallbladder ejection fraction was evaluated by measuring diminishing radioactivity in the gallbladder, over 30 min interval. FINDINGS: Timely visualization of the entire liver after administration of radiopharmaceutical. No focal regions of increased or decreased activity. Timely visualization of intrahepatic and extrahepatic biliary ducts and the gallbladder. After drinking the fatty meal, peak activity in the gallbladder was approximately three minutes after ingestion. Lowest amount of activity in the gallbladder approximately 25 minutes after ingestion. Decrease in activity during this time was 71%. IMPRESSION: 1. No intrahepatic or extrahepatic biliary dilatation with visualization of the gallbladder and small bowel. 2. Normal gallbladder ejection fraction. Electronically signed by: Holden Peralta MD 05/13/2017 11:26 AM CDT
== END ==
LOC: NM 14:34
PROVIDERS: ATTEND Family Medicine
DX: R10.11 Right upper quadrant pain (principal)
CPT/HCPCS: 78227; A9537

== ENCOUNTER → 2017-06-30 | Outpatient (CLI) | payer MEDICARE, OTHER | END | disposition home or self-care (01) | LOC: GMAL 10:41 | PROVIDERS: ATTEND Family Medicine | DX: E55.9 Vitamin D deficiency, unspecified (principal) ==

== ENCOUNTER → 2017-10-06 | Outpatient (CLI) | payer MEDICARE, OTHER | LOC: LAB.O 08:26 | PROVIDERS: ATTEND Internal Medicine Infectious Disease | DX: D80.1 Nonfamilial hypogammaglobulinemia (principal) ==

== ENCOUNTER → 2017-12-28 | Outpatient (CLI) | payer MEDICARE, OTHER | LOC: BFHH 10:30 | PROVIDERS: ATTEND Family Medicine | DX: I13.0 Hypertensive heart and chronic kidney disease with heart failure and stage 1 through stage 4 chronic kidney disease, or unspecified chronic kidney disease (principal); I50.30 Unspecified diastolic (congestive) heart failure; N18.9 Chronic kidney disease, unspecified; E07.9 Disorder of thyroid, unspecified; E11.9 Type 2 diabetes mellitus without complications; E55.9 Vitamin D deficiency, unspecified; E78.5 Hyperlipidemia, unspecified; D64.9 Anemia, unspecified; Z79.01 Long term (current) use of anticoagulants ==

== ENCOUNTER → 2018-01-05 | Outpatient (CLI) | payer MEDICARE, OTHER ==
--- NOTE | 2018-01-09 10:11 | MAM ---
EXAM DESCRIPTION: 3D Screening BILATERAL : Digital Mammography. CLINICAL HISTORY: 72 years Female SCREEN . No complaints. No family history breast cancer. Postmenopausal. Taking HRT 5 or more years ago. Left breast biopsy. COMPARISON: 2-D digital screening bilateral study 01/04/2017. Also screening study on 08/14/2015. Report from prior examination also reviewed. TECHNIQUE: Bilateral CC and MLO projection full-field images, 3-D tomosynthesis digital mammographic technique. Also bilateral synthesized CC/ MLO full-field images. CAD not utilized. Patient had difficulty standing which limited positioning. FINDINGS: The breast parenchymal density pattern is: Scattered areas of fibroglandular density. No skin thickening or nipple retraction bilateral axillary lymph nodes. Bilateral solitary microcalcifications. Bilateral vascular calcifications. hose coupling joiner partially visible on the right breast. Mass density in the 700 clock position of the middle third of the right breast. Partially radiolucent centrally and stable since the prior study, most likely a lymph node. No focal, stellate mass or density, focal asymmetry , and no suspicious microcalcifications bilaterally. Stable mammograms compared to prior study, taking into account differences in mammographic technique IMPRESSION: BI-RADS CATEGORY: 2 - BENIGN FINDINGS. FOLLOW UP: Routine digital bilateral screening, one year interval from December 2017. Written communication explaining the IMPRESSION and follow-up, will be mailed to the patient and referring health care provider. According to the [employer], yearly mammograms are recommended starting at age 40 and continuing as long as a woman is in good health. Any breast change noted on a breast self-exam should be reported promptly to the patient's healthcare provider. Breast MRI is recommended for women with an approximately 20-25% or greater lifetime risk of breast cancer, including women with a strong family history of breast or ovarian cancer and women who have been treated for Hodgkin's disease. A negative mammographic report should not delay tissue diagnosis in patients with significant clinical history or physical findings. Extremely dense breast tissue limits the sensitivity of digital mammography. Electronically signed by: Holden Peralta MD 01/09/2018 10:09 AM CDT
== END ==
LOC: MAMMO 11:23
PROVIDERS: ATTEND Family Medicine
DX: Z12.31 Encounter for screening mammogram for malignant neoplasm of breast (principal)

== ENCOUNTER → 2018-04-19 | Outpatient (CLI) | payer MEDICARE, OTHER | LOC: GMAL 11:39 | PROVIDERS: ATTEND Family Medicine | DX: E88.09 Other disorders of plasma-protein metabolism, not elsewhere classified (principal) ==

== ENCOUNTER → 2018-05-24 | Outpatient (CLI) | payer MEDICARE, OTHER ==
--- NOTE | 2018-05-24 14:08 | CT ---
EXAM DESCRIPTION: Abdoment/Pelvis w/o Contrast CLINICAL HISTORY: 73 years Female, stage IV chronic kidney disease. COMPARISON: Ultrasound of the abdomen dated 05/05/2017. TECHNIQUE: Contiguous 3 mm axial images were obtained from the lung bases to the level of the proximal femora without the administration of intravenous or oral contrast. Sagittal and coronal reconstructions were reviewed. FINDINGS: Limited evaluation of the solid organs due to the lack of intravenous contrast. THORAX: The imaged lower thorax demonstrates no gross abnormality. LIVER: The liver demonstrates normal size and density with no intrahepatic biliary ductal dilatation. GALLBLADDER: Large gallstones are identified. PANCREAS: Appears normal with no cystic or solid lesions. SPLEEN: Normal ADRENAL GLANDS: Normal with no nodules or masses. KIDNEYS: 4.5 x 3.8 cm simple cyst is noted in the posterior aspect of the interpolar region of the left kidney. The visualized ureters appear grossly unremarkable. STOMACH: Small hiatal hernia is noted. The stomach is not well-distended limiting detailed evaluation. SMALL BOWEL: The small bowel loops demonstrate variable degrees of distention with no abnormal dilatation or other signs to suggest bowel obstruction. LARGE BOWEL: Majority of the colon is not well-distended limiting detailed evaluation. No evidence of free intraperitoneal air or fluid. RETROPERITONEUM: The abdominal aorta is nonaneurysmal with mild to moderate atherosclerosis. Inferior vena cava filter is noted. No abnormally enlarged retroperitoneal lymph nodes are identified. URINARY BLADDER:The urinary bladder is well-distended with no gross abnormality. The uterus and ovaries are surgically absent. ADDITIONAL FINDINGS: None. BONES: Moderate degenerative changes are identified in the visualized bones.No evidence of osteophytic or osteoblastic lesions. IMPRESSION: 1. Cholelithiasis. 2. Small hiatal hernia. This exam was performed according to our departmental dose-optimization program, which includes automated exposure control, adjustment of the mA and/or kV according to patient size and/or use of iterative reconstruction technique. Electronically signed by: Garima Cosby MD 05/24/2018 2:06 PM CDT
== END ==
LOC: CT 13:24
PROVIDERS: ATTEND Internal Medicine Nephrology
DX: N18.4 Chronic kidney disease, stage 4 (severe) (principal); K80.20 Calculus of gallbladder without cholecystitis without obstruction; K44.9 Diaphragmatic hernia without obstruction or gangrene

== ENCOUNTER → 2018-07-13 | Outpatient (CLI) | payer MEDICARE, OTHER ==
--- NOTE | 2018-07-13 10:17 | RAD ---
Single frontal view pelvis Indication: HIP PAIN Comparison: April 18, 2015 Impression: IVC filter noted. No pelvic fracture identified. Mild bilateral hip joint space narrowing with tiny osteophytes. Mild pubic symphysis osteoarthritis. Pronounced lower lumbar disc disease. Electronically signed by: Wilian Davalos MD 07/13/2018 10:16 AM CDT
--- NOTE | 2018-07-13 10:17 | RAD ---
Frontal and lateral views of the right knee. Indication: KNEE PAIN Impression: Postsurgical changes of right total knee arthroplasty noted. No hardware complication identified. No fracture or malalignment. Electronically signed by: Wilian Davalos MD 07/13/2018 10:15 AM CDT
== END ==
LOC: RAD 08:09
PROVIDERS: ATTEND Orthopaedic Surgery
DX: M25.561 Pain in right knee (principal); M25.551 Pain in right hip; M51.36 Other intervertebral disc degeneration, lumbar region; Z96.651 Presence of right artificial knee joint; Z95.828 Presence of other vascular implants and grafts

== ENCOUNTER → 2018-10-05 | Outpatient (CLI) | payer MEDICARE, OTHER | LOC: GMAL 14:17 | PROVIDERS: ATTEND Family Medicine | DX: D51.3 Other dietary vitamin B12 deficiency anemia (principal) ==

== ENCOUNTER → 2018-11-21 | Outpatient (CLI) | payer MEDICARE, OTHER | LOC: LAB.O 10:23 | PROVIDERS: ATTEND Internal Medicine Infectious Disease | DX: D80.1 Nonfamilial hypogammaglobulinemia (principal) ==

== ENCOUNTER → 2019-01-08 | Outpatient (CLI) | payer MEDICARE, OTHER ==
--- NOTE | 2019-01-10 10:49 | MAM ---
EXAM DESCRIPTION: 3D Screening BILATERAL : Digital Mammography. CLINICAL HISTORY: 73 years Female SCREEN . No complaints. No personal or family history of breast cancer. Childbirth. Postmenopausal 38 years. Has taken HRT 5 or more years ago. Lifetime risk of developing breast cancer (Tyrer-Cuzick model)(%): 3.2. COMPARISON: Bilateral screening digital breast tomosynthesis 01/05/2018. TECHNIQUE: Bilateral CC and MLO projection full-field images, digital tomosynthesis mammographic technique. Bilateral digital 2-D full-field MLO images. CAD not available for tomosynthesis or 2-D images. FINDINGS: The breast parenchymal density pattern is: Scattered areas of fibroglandular density. No skin thickening or nipple retraction. Bilateral axillary and intramammary lymph nodes. ui architect partially visible on the right breast MLO images at the inferior anterior margin of the right pectoral muscle. Stable since the prior study. Stable mass density in the lateral aspect of the mid third of the right breast, most likely an intramammary lymph node. Stable small associated microcalcification and stable microcalcifications in the left breast. No new focal, stellate mass or density, focal asymmetry , and no suspicious microcalcifications bilaterally. Stable mammograms compared to prior study. IMPRESSION: Benign exam. BIRAD CATEGORY: 2 BENIGN FINDINGS. RECOMMENDATIONS: FOLLOW UP: Routine digital bilateral mammographic screening, one year interval from December 2018 Written communication explaining the IMPRESSION and follow-up, will be mailed to the patient and referring health care provider. According to the [employer], yearly mammograms are recommended starting at age 40 and continuing as long as a woman is in good health. Any breast change noted on a breast self-exam should be reported promptly to the patient's healthcare provider. Breast MRI is recommended for women with an approximately 20-25% or greater lifetime risk of breast cancer, including women with a strong family history of breast or ovarian cancer and women who have been treated for Hodgkin's disease. A negative mammographic report should not delay tissue diagnosis in patients with significant clinical history or physical findings. Extremely dense breast tissue limits the sensitivity of digital mammography. Electronically signed by: Holden Peralta MD 01/10/2019 10:47 AM CDT
== END ==
LOC: MAMMO 08:00
PROVIDERS: ATTEND Family Medicine
DX: Z12.31 Encounter for screening mammogram for malignant neoplasm of breast (principal)

== ENCOUNTER → 2019-06-12 | Outpatient (CLI) | payer MEDICARE, OTHER | LOC: GMAL 14:19 | PROVIDERS: ATTEND Family Medicine | DX: R53.83 Other fatigue (principal); E55.9 Vitamin D deficiency, unspecified; I10 Essential (primary) hypertension; R73.09 Other abnormal glucose; E78.49 Other hyperlipidemia ==

== ENCOUNTER → 2020-01-25 | Outpatient (CLI) | payer MEDICARE, OTHER | LOC: GMAL 10:08 | PROVIDERS: ATTEND Family Medicine | DX: R73.09 Other abnormal glucose (principal); I69.351 Hemiplegia and hemiparesis following cerebral infarction affecting right dominant side; I69.320 Aphasia following cerebral infarction; J44.9 Chronic obstructive pulmonary disease, unspecified; Z51.81 Encounter for therapeutic drug level monitoring; Z79.01 Long term (current) use of anticoagulants ==

== ENCOUNTER → 2020-01-29 | Outpatient (CLI) | payer MEDICARE, OTHER | LOC: BFHH 13:36 | PROVIDERS: ATTEND Family Medicine | DX: J44.9 Chronic obstructive pulmonary disease, unspecified (principal); I13.0 Hypertensive heart and chronic kidney disease with heart failure and stage 1 through stage 4 chronic kidney disease, or unspecified chronic kidney disease; N18.9 Chronic kidney disease, unspecified; Z86.718 Personal history of other venous thrombosis and embolism ==

== ENCOUNTER → 2020-02-12 | Outpatient (CLI) | payer MEDICARE, OTHER | LOC: BFHH 14:00 | PROVIDERS: ATTEND Family Medicine | DX: I69.351 Hemiplegia and hemiparesis following cerebral infarction affecting right dominant side (principal); I13.0 Hypertensive heart and chronic kidney disease with heart failure and stage 1 through stage 4 chronic kidney disease, or unspecified chronic kidney disease; N18.9 Chronic kidney disease, unspecified; Z51.81 Encounter for therapeutic drug level monitoring; Z86.718 Personal history of other venous thrombosis and embolism ==

== ENCOUNTER → 2020-02-25 | Outpatient (CLI) | payer MEDICARE, OTHER | LOC: BFHH 13:24 | PROVIDERS: ATTEND Family Medicine | DX: N18.9 Chronic kidney disease, unspecified (principal); J44.9 Chronic obstructive pulmonary disease, unspecified; Z51.81 Encounter for therapeutic drug level monitoring ==

== ENCOUNTER 2020-03-17 09:43 | Emergency (ER) | payer MEDICARE, OTHER ==
[2020-03-17] MEDS ORDERED: IPRATROPIUM BROMIDE NEBS 0.5 MG/2.5 ML VIAL NEB ONE ×2 (10:07→10:09)
[2020-03-17] MEDS ORDERED: ALBUTEROL SULFATE 2.5 MG/3 ML VIAL NEB ONE (10:07)
[2020-03-17] MEDS ORDERED: PROMETHAZINE W/COD (ER DISP) 20 ML BTTL PO ONE (10:09)
[2020-03-17] MEDS ORDERED: DEXAMETHASONE INJ 10 MG/ML VIAL IM ONE (10:09)
[2020-03-17] MEDS ORDERED: ALBUTEROL SULFATE 2.5 MG/3 ML VIAL NEB SCH (10:15)
[2020-03-17] MEDS ORDERED: PROMETHAZINE W/CODEINE SYR 5 ML UD PO ONE (10:20)
--- NOTE | 2020-03-17 10:21 | ED.PDOC ---
History of Present Illness - General Chief Complaint: Respiratory Problem Stated Complaint: cough, COPD exacerbation Time Seen by Provider: 03/17/20 10:09 - History of Present Illness Comments: 75 F +pmh presents with spouse to ED c/o several months of unresolved and continued dry hacking cough. Pt endorses associated headache and pleuritic chest and back pain present from and during coughing only. She has tested negative for COVID19 on multiple occasions with last being a few weeks ago in February; denies any known recent sick contacts. Denies alleviating factors and states the z- pack, 3 prednisone dose packs, and tessalon perles have not improved or controlled her symptoms. Pt continues to use her DuoNeb nebulized treatment at home; single vial use at a time up to 4-5 times daily. Pt is with no other complaints at this time. Appropriate PPE of surgical mask, gown, gloves, eye protection utilized with every patient encounter; in accordance with hospital policy. Allergies/Adverse Reactions: Allergies NO KNOWN ALLERGY Allergy (Verified 03/17/20 10:14) Home Medications: Ambulatory Orders Lisinopril 20 mg PO DAILY 01/30/13 predniSONE [PredniSONE] 2 mg PO DAILY 01/30/13 Warfarin Sodium [Coumadin] 6 mg PO DAILY 04/22/14 amLODIPine BESYLATE [Norvasc] 5 mg PO DAILY 04/22/14 Furosemide [Lasix] 40 mg PO DAILY 06/07/14 Aspirin [Aspirin Adult Low Dose] 81 mg PO DAILY 04/28/16 Potassium Chloride [Potassium Chloride ER] 10 meq PO DAILY 07/18/16 Amoxicillin & Pot Clavulanate [Augmentin Tab] 2 gm PO BID 7 Days #56 tablet 03/17/20 Benzonatate Perles [Tessalon Perles] 200 mg PO TID PRN #30 cap 03/17/20 Citalopram Hydrobromide [Citalopram] 20 mg PO BEDTIME 03/17/20 Doxycycline Hyclate [Vibramycin] 100 mg PO Q12H 7 Days #14 cap 03/17/20 Montelukast [Singulair] 10 mg PO DAILY 03/17/20 Potassium Chloride [K-Tab] 10 meq PO BEDTIME 03/17/20 Promethazine W/Codeine Syr [Phenergan With Codeine Syrup] 5 ml PO TID PRN #60 ml 03/17/20 Simvastatin [Zocor] 20 mg PO BEDTIME 03/17/20 Review of Systems - Review of Systems Constitutional: Denies: chills, diaphoresis, fever EENTM: Denies: nose pain, nose congestion, throat swelling Respiratory: States: cough, short of breath Cardiology: States: chest pain - pleuritic by pt description, diffuse throughout entire chest and back while coughing only. Denies: edema, palpitations Gastrointestinal/Abdominal: Denies: abdominal pain, diarrhea, nausea, vomiting Genitourinary: Denies: dysuria, frequency Musculoskeletal: States: back pain - pleuritic by pt description, diffuse throughout entire chest and back while coughing only. Denies: joint swelling, muscle pain Neurological: States: headache, other - no dizziness. Denies: weakness Endocrine: Denies: excessive sweating, intolerance to cold Past Medical History (General) - Patient Medical History Hx Seizures: No Hx Stroke: Yes - 4 years has some memory problem since then Hx Dementia: No Hx Asthma: No Hx of COPD: Yes Hx Cardiac Disorders: Yes - stents Hx Congestive Heart Failure: No Hx Pacemaker: No Hx Hypertension: Yes Hx Thyroid Disease: No Hx Diabetes: No Hx Gastroesophageal Reflux: No Hx Renal Disease: No Hx Cancer: No Hx of HIV: No Hx Hepatitis C: No Hx MRSA: No - Vaccination History Hx Tetanus, Diphtheria Vaccination: No Hx Influenza Vaccination: Yes Hx Pneumococcal Vaccination: Yes - Social History Hx Tobacco Use: No Hx Chewing Tobacco Use: No Hx Alcohol Use: No Hx Substance Use: No Hx Substance Use Treatment: No Hx Depression: No Hx Physical Abuse: No Hx Emotional Abuse: No Hx Suspected Abuse: No - Female History Patient : No Family Medical History - Family History Father Family History: Unknown Living Status: Hx Family Hypertension: Yes - dad Hx Cardiac Disease: Yes - dad Hx Family Diabetes: Yes - dad Hx Family Cancer: Yes - dad-lungs; liver-mom Mother Living Status: Hx Cardiac Disease: Yes Hx Family;Other: nephrolithiasis Physical Exam - Physical Exam General Appearance: Alert, Other - Minimally distressed from persistent dry hacking cough present during examination, non-toxic, morbid BMI Eye Exam: bilateral normal ENT Exam: normal ENT inspection Neck: full range of motion, supple, normal inspection, trachea midline, other - no JVD Respiratory: no accessory muscle use, respiratory distress, decreased breath sounds, other - mild respiratory distress with borderline tachypnea, diminished throughout with diffuse rhonchi, no crackles, no wheezing, no stridor Cardiovascular/Chest: normal peripheral pulses, regular rate, rhythm, no edema, no gallop, no JVD, no murmur Gastrointestinal/Abdominal: normal bowel sounds, non tender, soft Extremity: normal inspection, no pedal edema Neurologic: alert, normal mood/affect, oriented x 3 Skin Exam: normal color, warm/dry Progress - Progress Progress: 75 F presents with acute on chronic bronchitis in setting of known COPD. Pt has been unresponsive to z-pack and x3 prednisone dose packs. Pt does not appear to be with community acquired pneumonia and has been tested multiple times for COVID during the SARS-CoV-2 global pandemic; testing negative every time. I do not feel pt is with SARS-CoV-2 at this time. I will evaluate chest xray, EKG, labs, provide appropriate pharmacotherapy as indicated, and continue to monitor/reassess. Disposition will depend on imaging, labs, EKG, and overall course throughout ED encounter; however, discharge home with f/u, education/inst ructions, and prescription medication is expected. Zaire Phillips DO Emergency [phone] Rechecked pt. NAD, VSS, resting comfortably in bed and is feeling much better. I have discussed radiology results, lab results, my clinical impression, and diagnosis. I have also discussed plan for discharge home with f/u, education, and prescription medications. ED return precautions provided. Pt voices understanding, agrees with plan, and all questions answered. - Results/Orders Results/Orders: EKG 03/17/2020 @1010 ED physician read @1021 NSR @ 94, nl axis, intervals wnl, no ST elevations/depressions, isolated T-wave inversion in V1. No STEMI. Compared with 04/14/2017 EKG: new t-wave inversion in V1; otherwise no acute findings concerning for acute ischemia. Vital Signs - 24 hr 03/17/20 03/17/20 03/17/20 09:50 10:44 11:00 Temperature 98.7 F 98.5 F Pulse Rate [ 104 H 88 96 H brachial] Respiratory 22 20 20 Rate Blood Pressure 157/64 134/57 135/56 [Right Arm] O2 Sat by Pulse 98 97 96 Oximetry 1151 Recheck: pt normotensive, RR 18, O2 Sat 98% on room air. 03/17/20 10:15 Albuterol Sulfate Nebs [Proventil Nebs] 7.5 mg NEB CONTINUOUS EKG STAT Laboratory Results - last 24 hr 03/17/20 03/17/20 10:25 10:25 WBC 10.2 RBC 3.00 L Hgb 8.8 L Hct 27.4 L MCV 91.3 MCH 29.3 MCHC 32.1 RDW 13.7 Plt Count 261 MPV 10.7 Neut % 65.9 Absolute Neuts (auto) Cancelled Absolute Lymphs (auto) 2.30 Absolute Monos (auto) 0.88 Absolute Eos (auto) Cancelled Absolute Basos (auto) Cancelled Neutrophils % Cancelled Lymphocytes % 22.5 Monocytes % 8.6 Eosinophils % Cancelled Basophils % Cancelled Absolute Neutrophils 6.74 Differential Comment Cancelled RBC Morphology Cancelled Sodium 139 Potassium 3.7 Chloride 107 Carbon Dioxide 23 Anion Gap 12.7 BUN 32 H Creatinine 1.34 H BUN/Creatinine Ratio 23.9 H Random Glucose 94 Serum Osmolality 284.2 Calcium 8.4 EXAM DESCRIPTION: Chest,1 View CLINICAL HISTORY: acute on chronic cough, dyspnea COMPARISON: Chest radiograph dated April 16, 2017 TECHNIQUE: One view radiograph of the chest FINDINGS: Redemonstrated right-sided Mediport with distal tip projecting over the distal SVC. Mild calcific atherosclerosis of the aortic arch. Cardiac silhouette again shows cardiomegaly. Pulmonary vascularity upper limits of normal. Subtle hazy linear opacities in the bilateral lung bases most compatible with atelectasis. Early infiltrate cannot be entirely excluded. Costophrenic angles are sharp. No pneumothorax. No acute osseous abnormality. Postsurgical changes over both humeral heads. IMPRESSION: Subtle hazy linear opacities bilateral lung bases most compatible with atelectasis. Early infiltrate cannot be entirely excluded. Electronically signed by: Diego Cuenca MD 03/17/2020 10:45 AM CDT I have reviewed radiology imaging and official radiology read. I am in agreement with above findings. - EKG/XRAY/CT EKG: Sinus Departure - Departure Clinical Impression: Acute bronchitis with chronic obstructive pulmonary disease (COPD), Community acquired bacterial pneumonia Time of Disposition: 11:38 Disposition: Discharge to Home or Self Care Condition: Excellent Departure Forms: ED Discharge - Pt. Copy, Patient Portal Self Enrollment Instructions: DI for Pneumonia -- Adult, Chronic Obstructive Pulmonary Disease (COPD) (DC) Diet: resume usual diet Referrals: Diego Harrison III, MD [Primary Care Provider] - 1-2 Days [facility] [Other] (If symptoms do not improve or continue to get worse over the next 2-3 days, then return to Emergency Department for evaluation. Return to Emergency Department if you develop: worsening shortness o f breath, exertional chest pain with sweating, uncontrolled nausea/vomiting, or any other symptoms concernin to you.) Prescriptions: Amoxicillin & Pot Clavulanate [Augmentin Tab] 2 gm PO BID 7 Days #56 tablet Benzonatate Perles [Tessalon Perles] 200 mg PO TID PRN #30 cap PRN Reason: Cough Doxycycline Hyclate [Vibramycin] 100 mg PO Q12H 7 Days #14 cap Promethazine W/Codeine Syr [Phenergan With Codeine Syrup] 5 ml PO TID PRN #60 ml PRN Reason: Cough Home Medications: Ambulatory Orders Lisinopril 20 mg PO DAILY 01/30/13 predniSONE [PredniSONE] 2 mg PO DAILY 01/30/13 Warfarin Sodium [Coumadin] 6 mg PO DAILY 04/22/14 amLODIPine BESYLATE [Norvasc] 5 mg PO DAILY 04/22/14 Furosemide [Lasix] 40 mg PO DAILY 06/07/14 Aspirin [Aspirin Adult Low Dose] 81 mg PO DAILY 04/28/16 Potassium Chloride [Potassium Chloride ER] 10 meq PO DAILY 07/18/16 Amoxicillin & Pot Clavulanate [Augmentin Tab] 2 gm PO BID 7 Days #56 tablet 03/17/20 Benzonatate Perles [Tessalon Perles] 200 mg PO TID PRN #30 cap 03/17/20 Citalopram Hydrobromide [Citalopram] 20 mg PO BEDTIME 03/17/20 Doxycycline Hyclate [Vibramycin] 100 mg PO Q12H 7 Days #14 cap 03/17/20 Montelukast [Singulair] 10 mg PO DAILY 03/17/20 Potassium Chloride [K-Tab] 10 meq PO BEDTIME 03/17/20 Promethazine W/Codeine Syr [Phenergan With Codeine Syrup] 5 ml PO TID PRN #60 ml 03/17/20 Simvastatin [Zocor] 20 mg PO BEDTIME 03/17/20
--- NOTE | 2020-03-17 10:46 | RAD ---
EXAM DESCRIPTION: Chest,1 View CLINICAL HISTORY: acute on chronic cough, dyspnea COMPARISON: Chest radiograph dated April 16, 2017 TECHNIQUE: One view radiograph of the chest FINDINGS: Redemonstrated right-sided Mediport with distal tip projecting over the distal SVC. Mild calcific atherosclerosis of the aortic arch. Cardiac silhouette again shows cardiomegaly. Pulmonary vascularity upper limits of normal. Subtle hazy linear opacities in the bilateral lung bases most compatible with atelectasis. Early infiltrate cannot be entirely excluded. Costophrenic angles are sharp. No pneumothorax. No acute osseous abnormality. Postsurgical changes over both humeral heads. IMPRESSION: Subtle hazy linear opacities bilateral lung bases most compatible with atelectasis. Early infiltrate cannot be entirely excluded. Electronically signed by: Diego Cuenca MD 03/17/2020 10:45 AM CDT
[2020-03-17 11:39] VITALS: O2SAT 96
[2020-03-17 11:59] VITALS: BP 130/61; TEMP 98.4
== END 2020-03-17 11:58 | disposition home or self-care (01) ==
LOC: ER 09:43
DX: J20.9 Acute bronchitis, unspecified (principal); J44.0 Chronic obstructive pulmonary disease with (acute) lower respiratory infection; J18.9 Pneumonia, unspecified organism; R07.9 Chest pain, unspecified; I10 Essential (primary) hypertension; Z95.5 Presence of coronary angioplasty implant and graft; Z86.73 Personal history of transient ischemic attack (TIA), and cerebral infarction without residual deficits; Z79.01 Long term (current) use of anticoagulants; Z79.82 Long term (current) use of aspirin; Z79.899 Other long term (current) drug therapy
CPT/HCPCS: 36415; 71045; 80048; 85025; 93005; J1100; J7611; J7644

== ENCOUNTER → 2020-04-14 | Outpatient (CLI) | payer MEDICARE, OTHER | LOC: BFHH 14:58 | PROVIDERS: ATTEND Family Medicine | DX: J44.1 Chronic obstructive pulmonary disease with (acute) exacerbation (principal); I50.30 Unspecified diastolic (congestive) heart failure; I13.0 Hypertensive heart and chronic kidney disease with heart failure and stage 1 through stage 4 chronic kidney disease, or unspecified chronic kidney disease; N18.9 Chronic kidney disease, unspecified; K92.2 Gastrointestinal hemorrhage, unspecified; Z79.01 Long term (current) use of anticoagulants; Z86.718 Personal history of other venous thrombosis and embolism ==

== ENCOUNTER 2020-04-15 12:59 | Emergency (ER) | payer MEDICARE, OTHER ==
[2020-04-15 13:31] VITALS: TEMP 98.8
[2020-04-15] MEDS ORDERED: ALBUTEROL INHALER 64 PUFF/8GM INH ONE ×2 (13:40→16:12)
--- NOTE | 2020-04-15 13:46 | ED.PDOC ---
History of Present Illness - General Chief Complaint: Respiratory Problem Stated Complaint: Shortness of breath Time Seen by Provider: 04/15/20 13:24 Source: patient Exam Limitations: no limitations - History of Present Illness Comments: SOB X 5 D. COUGH. USES DUONEBS AT HOME 5X/D FOR ASTHMA. NO CP. NO SMOKING. H/O STROKE, WARFARIN DC'D 1 MO AGO FOR GASTRIC ULCER. Timing/Duration: week Cough Quality/Degree: moderate, dry cough Possible Cause: unknown cause Improving Factors: nothing Worsening Factors: movement Associated Symptoms: cough, shortness of breath Respiratory Risk Factors: no cause identified Allergies/Adverse Reactions: Allergies NO KNOWN ALLERGY Allergy (Verified 04/15/20 13:34) Home Medications: Ambulatory Orders Lisinopril 20 mg PO DAILY 01/30/13 predniSONE [PredniSONE] 2 mg PO DAILY 01/30/13 Warfarin Sodium [Coumadin] 6 mg PO DAILY 04/22/14 amLODIPine BESYLATE [Norvasc] 5 mg PO DAILY 04/22/14 Furosemide [Lasix] 40 mg PO DAILY 06/07/14 Aspirin [Aspirin Adult Low Dose] 81 mg PO DAILY 04/28/16 Potassium Chloride [Potassium Chloride ER] 10 meq PO DAILY 07/18/16 Citalopram Hydrobromide [Citalopram] 20 mg PO BEDTIME 03/17/20 Montelukast [Singulair] 10 mg PO DAILY 03/17/20 Promethazine W/Codeine Syr [Phenergan With Codeine Syrup] 5 ml PO TID PRN #60 ml 03/17/20 Simvastatin [Zocor] 20 mg PO BEDTIME 03/17/20 Albuterol Inhaler [Ventolin Hfa Inhaler] 2 puff INH Q6H PRN #1 inh 04/15/20 Amoxicillin & Pot Clavulanate [Augmentin] 875 mg PO BID #20 tab 04/15/20 Methylprednisolone [Medrol Dose Dawit] 4 mg PO DAILY #1 tab 04/15/20 Review of Systems - Review of Systems Constitutional: Denies: chills, fever EENTM: Denies: ear pain, throat pain Respiratory: States: cough, short of breath, wheezing Cardiology: Denies: chest pain, palpitations Gastrointestinal/Abdominal: States: no symptoms reported Genitourinary: States: no symptoms reported Musculoskeletal: States: no symptoms reported Skin: States: no symptoms reported Neurological: States: no symptoms reported Endocrine: States: no symptoms reported Hematologic/Lymphatic: States: no symptoms reported All other Systems: Reviewed and Negative Past Medical History (General) - Patient Medical History Hx Seizures: No Hx Stroke: Yes - 4 years has some memory problem since then Hx Dementia: No Hx Asthma: No Hx of COPD: Yes Hx Cardiac Disorders: Yes - stents Hx Congestive Heart Failure: No Hx Pacemaker: No Hx Hypertension: Yes Hx Thyroid Disease: No Hx Diabetes: No Hx Gastroesophageal Reflux: Yes Hx Renal Disease: No Hx Cancer: No Hx of HIV: No Hx Hepatitis C: No Hx MRSA: No Surgical History: Hysterectomy - Vaccination History Hx Tetanus, Diphtheria Vaccination: Yes Hx Influenza Vaccination: Yes Hx Pneumococcal Vaccination: Yes - Social History Hx Tobacco Use: No Hx Chewing Tobacco Use: No Hx Alcohol Use: No Hx Substance Use: No Hx Substance Use Treatment: No Hx Depression: No Hx Physical Abuse: No Hx Emotional Abuse: No Hx Suspected Abuse: No - Female History Patient : No Family Medical History - Family History Father Family History: Unknown Living Status: Hx Family Hypertension: Yes - dad Hx Cardiac Disease: Yes - dad Hx Family Diabetes: Yes - dad Hx Family Cancer: Yes - dad-lungs; liver-mom Mother Living Status: Hx Cardiac Disease: Yes Hx Family;Other: nephrolithiasis Physical Exam - Physical Exam General Appearance: Alert, Obvious distress Eye Exam: bilateral normal ENT Exam: normal ENT inspection, TMs normal, pharynx normal Neck: full range of motion, normal inspection Respiratory: no respiratory distress, no accessory muscle use, rhonchi - BL, wheezing - EXPIRATORY Cardiovascular/Chest: regular rate, rhythm, no murmur Extremity: non-tender, normal inspection Neurologic: no motor/sensory deficits, normal mood/affect Skin Exam: normal color, warm/dry Lymphatic: no adenopathy Progress - Progress Progress: 04/15/20 16:10 REASSESSED - SOB IMPROVING SINCE ALBUTEROL X 6 (INSTEAD OF NEBS D/T COVID RISKS). BREATHING COMFORTABLY. TACHYPNEA RESOLVED. STILL MILD SOB AND BL EXPIR WHEEZE, THUS REPEAT BREATHING TX. 04/15/20 17:58 asthma exacerbation - RX ABX, STEROIDS, ALBUTEROL. GAVE 1ST DOSE IN ER. HOSP ADMISSION NOT INDICATED; SATS NL. REMAINING W/U FOR CONCERNS WAS NEG (COVID, CXR, EKG, BMP, CARD ENZ, COAGS, BNP.) 5D SX THUS 1 SET CARD ENZ RULES OUT ACS. D-DIMER ELVATED 1809; CTA NEG FOR P.E. HGB 10.1. ETX UNCLEAR. EVAL OUTPT. Departure - Departure Clinical Impression: D-dimer, elevated Asthma exacerbation Qualifiers: Asthma severity: severe Asthma persistence: persistent Qualified Code(s): J45.51 - Severe persistent asthma with (acute) exacerbation Anemia Qualifiers: Anemia type: unspecified type Qualified Code(s): D64.9 - Anemia, unspecified Dyspnea Qualifiers: Dyspnea type: shortness of breath Qualified Code(s): R06.02 - Shortness of breath Disposition: Discharge to Home or Self Care Condition: Fair Departure Forms: ED Discharge - Pt. Copy, Patient Portal Self Enrollment Diet: resume usual diet Activity: increase activity as tolerated Referrals: Diego Harrison III, MD [Primary Care Provider] - 1-5 Days Prescriptions: Amoxicillin & Pot Clavulanate [Augmentin] 875 mg PO BID #20 tab Methylprednisolone [Medrol Dose Dawit] 4 mg PO DAILY #1 tab Albuterol Inhaler [Ventolin Hfa Inhaler] 2 puff INH Q6H PRN #1 inh PRN Reason: WHEEZE Home Medications: Ambulatory Orders Lisinopril 20 mg PO DAILY 01/30/13 predniSONE [PredniSONE] 2 mg PO DAILY 01/30/13 Warfarin Sodium [Coumadin] 6 mg PO DAILY 04/22/14 amLODIPine BESYLATE [Norvasc] 5 mg PO DAILY 04/22/14 Furosemide [Lasix] 40 mg PO DAILY 06/07/14 Aspirin [Aspirin Adult Low Dose] 81 mg PO DAILY 04/28/16 Potassium Chloride [Potassium Chloride ER] 10 meq PO DAILY 07/18/16 Citalopram Hydrobromide [Citalopram] 20 mg PO BEDTIME 03/17/20 Montelukast [Singulair] 10 mg PO DAILY 03/17/20 Promethazine W/Codeine Syr [Phenergan With Codeine Syrup] 5 ml PO TID PRN #60 ml 03/17/20 Simvastatin [Zocor] 20 mg PO BEDTIME 03/17/20 Albuterol Inhaler [Ventolin Hfa Inhaler] 2 puff INH Q6H PRN #1 inh 04/15/20 Amoxicillin & Pot Clavulanate [Augmentin] 875 mg PO BID #20 tab 04/15/20 Methylprednisolone [Medrol Dose Dawit] 4 mg PO DAILY #1 tab 04/15/20
--- NOTE | 2020-04-15 15:35 | RAD ---
EXAM DESCRIPTION: Chest,2 Views CLINICAL HISTORY: 75 years Female, SOB X 5 D COMPARISON: 03/17/2020 IMPRESSION: Right chest wall port catheter with tip over the mid superior vena cava. The heart is enlarged, without failure. Atherosclerosis in the thoracic aorta. The lungs are hyperexpanded. No confluent airspace consolidation, pleural effusion, or pneumothorax. No acute osseous abnormality. Electronically signed by: Fernandez Bhakta MD 04/15/2020 3:33 PM CDT
--- NOTE | 2020-04-15 17:36 | CT ---
PROCEDURE: CTA Chest CLINICAL HISTORY: 75 years Female SOB/COUGH X 5D. ELEVATED D-DIMER. CONCERN FOR P.E. COMPARISON: None. TECHNIQUE: Contiguous axial images were obtained through the chest during the infusion of IV contrast. Reformatted images obtained. MIP reformatted images obtained. This exam was performed according to our department optimization program which includes automated exposure control, adjustment of the mA and/or kv according to patient size and/or use of iterative reconstruction technique. FINDINGS: Emphysematous changes. Calcification in aorta and in the coronary arteries. Hiatal hernia. No pericardial or pleural effusion. No evidence of pulmonary embolus. Bolus of contrast is somewhat suboptimal. No acute consolidation. No pneumothorax. IMPRESSION:No evidence of pulmonary embolus Emphysema Vascular calcification Electronically signed by: Symone Cerna MD 04/15/2020 5:34 PM CDT
[2020-04-15] MEDS ORDERED: cefTRIAXone SODIUM 1 GM VIAL IM ONE (17:48)
[2020-04-15] MEDS ORDERED: methylPREDNISolone SODIUM SUC 125 MG/2 ML VIAL IV ONE (17:48)
[2020-04-15] MEDS ORDERED: cefTRIAXone SODIUM 1 GM in SODIUM CHL 0.9% 50ML MIN-BAG+ 50 ML IVPB ONE (17:51)
[2020-04-15 18:11] VITALS: BP 132/68; O2SAT 97
[2020-04-15] MEDS ORDERED: HEPARIN SODIUM 100 U/ML 5 ML SYG IV ONE (18:44)
== END 2020-04-15 18:52 | disposition home or self-care (01) ==
LOC: ER 12:59
DX: J45.51 Severe persistent asthma with (acute) exacerbation (principal); D64.9 Anemia, unspecified; I69.311 Memory deficit following cerebral infarction; K21.9 Gastro-esophageal reflux disease without esophagitis; I51.9 Heart disease, unspecified; I10 Essential (primary) hypertension; Z95.5 Presence of coronary angioplasty implant and graft; Z79.01 Long term (current) use of anticoagulants; Z79.899 Other long term (current) drug therapy; Z79.82 Long term (current) use of aspirin
CPT/HCPCS: 36415; 71046; 71275; 80048; 82550; 82553; 83880; 84484; 85025; 85379; 85610; 85730; 87635; 93005; 94664; J0696; J1642; J2930; J7050

== ENCOUNTER → 2020-04-28 | Outpatient (CLI) | payer MEDICARE, OTHER | LOC: BFHH 11:46 | PROVIDERS: ATTEND Family Medicine | DX: J44.1 Chronic obstructive pulmonary disease with (acute) exacerbation (principal); I69.351 Hemiplegia and hemiparesis following cerebral infarction affecting right dominant side; I13.0 Hypertensive heart and chronic kidney disease with heart failure and stage 1 through stage 4 chronic kidney disease, or unspecified chronic kidney disease; I50.30 Unspecified diastolic (congestive) heart failure; K92.2 Gastrointestinal hemorrhage, unspecified; Z86.718 Personal history of other venous thrombosis and embolism; R30.0 Dysuria ==

== ENCOUNTER 2020-07-23 11:17 | Inpatient (IN) | payer MEDICARE, OTHER ==
[2020-07-23] MEDS ORDERED: ALBUTEROL INHALER 64 PUFF/8GM INH ONE (11:54)
--- NOTE | 2020-07-23 11:58 | ED.PDOC ---
History of Present Illness - General Chief Complaint: Respiratory Problem Time Seen by Provider: 07/23/20 11:19 Source: patient, RN notes reviewed, Vital Signs reviewed, old records - History of Present Illness Initial Comments: 75 yo F with hx COPD comes in with 3 days of worsening shortness of breath, cough. ON chronic prednisone. no fever, no sick contacts. no sore throat. No recent travel or hospitalizations. Allergies/Adverse Reactions: Allergies NO KNOWN ALLERGY Allergy (Verified 07/23/20 12:07) Home Medications: Ambulatory Orders Lisinopril 20 mg PO DAILY 01/30/13 predniSONE [PredniSONE] 2 mg PO DAILY 01/30/13 Warfarin Sodium [Coumadin] 6 mg PO DAILY 04/22/14 amLODIPine BESYLATE [Norvasc] 5 mg PO DAILY 04/22/14 Furosemide [Lasix] 40 mg PO DAILY 06/07/14 Aspirin [Aspirin Adult Low Dose] 81 mg PO DAILY 04/28/16 Potassium Chloride [Potassium Chloride ER] 10 meq PO DAILY 07/18/16 Citalopram Hydrobromide [Citalopram] 20 mg PO BEDTIME 03/17/20 Montelukast [Singulair] 10 mg PO DAILY 03/17/20 Promethazine W/Codeine Syr [Phenergan With Codeine Syrup] 5 ml PO TID PRN #60 ml 03/17/20 Simvastatin [Zocor] 20 mg PO BEDTIME 03/17/20 Albuterol Inhaler [Ventolin Hfa Inhaler] 2 puff INH Q6H PRN #1 inh 04/15/20 Amoxicillin & Pot Clavulanate [Augmentin] 875 mg PO BID #20 tab 04/15/20 Methylprednisolone [Medrol Dose Dawit] 4 mg PO DAILY #1 tab 04/15/20 Review of Systems - Review of Systems Constitutional: Denies: chills, fever, malaise EENTM: Denies: blurred vision, throat pain Respiratory: States: cough, short of breath, wheezing Cardiology: States: chest pain. Denies: palpitations, syncope Gastrointestinal/Abdominal: Denies: abdominal pain, diarrhea, nausea, vomiting Genitourinary: Denies: frequency, hematuria Musculoskeletal: Denies: back pain, joint swelling, muscle pain Skin: Denies: rash Neurological: Denies: headache, numbness, paresthesia, seizure Endocrine: Denies: increased urine, unexplained weight gain, unexplained weight loss Hematologic/Lymphatic: Denies: easy bleeding, easy bruising Past Medical History (General) - Patient Medical History Hx Seizures: No Hx Stroke: Yes - 4 years has some memory problem since then Hx Dementia: No Hx Asthma: No Hx of COPD: Yes Hx Cardiac Disorders: Yes - stents Hx Congestive Heart Failure: No Hx Pacemaker: No Hx Hypertension: Yes Hx Thyroid Disease: No Hx Diabetes: No Hx Gastroesophageal Reflux: Yes Hx Renal Disease: No Hx Cancer: No Hx of HIV: No Hx Hepatitis C: No Hx MRSA: No - Vaccination History Hx Tetanus, Diphtheria Vaccination: Yes Hx Influenza Vaccination: Yes Hx Pneumococcal Vaccination: Yes - Social History Hx Tobacco Use: No Hx Chewing Tobacco Use: No Hx Alcohol Use: No Hx Substance Use: No Hx Substance Use Treatment: No Hx Depression: No Hx Physical Abuse: No Hx Emotional Abuse: No Hx Suspected Abuse: No - Female History Patient : No Family Medical History - Family History Father Family History: Unknown Living Status: Hx Family Hypertension: Yes - dad Hx Cardiac Disease: Yes - dad Hx Family Diabetes: Yes - dad Hx Family Cancer: Yes - dad-lungs; liver-mom Mother Living Status: Hx Cardiac Disease: Yes Hx Family;Other: nephrolithiasis Physical Exam - Physical Exam General Appearance: Alert, Comfortable, No apparent distress, Well Developed, Well Groomed, Well Hydrated, Well Nourished Eyes, Ears, Nose, Throat Exam: PERRL/EOMI, normal ENT inspection Neck: non-tender, full range of motion, supple, normal inspection, carotid bruit Respiratory: chest non-tender, no respiratory distress, no accessory muscle use, wheezing Cardiovascular/Chest: normal peripheral pulses, regular rate, rhythm, no gallop, no JVD, no murmur Peripheral Pulses: radial,right: 2+, radial,left: 2+ Gastrointestinal/Abdominal: normal bowel sounds, non tender, soft, no organomegaly, no pulsatile mass Rectal Exam: deferred Extremity: normal range of motion, non-tender, normal inspection, no calf tenderness, normal capillary refill, pedal edema, swelling Neurologic: doorshaker II-XII nml as tested, no motor/sensory deficits, alert, normal mood/affect, oriented x 3 Skin Exam: normal color, warm/dry Progress - Progress Progress: 07/23/20 11:57 partial ddx: COVID, COPD exacerbation, CHF, pneumonia, PE 07/23/20 15:32 cxr negative, due to elevated d-dimer will get CTA. Patient received duo neb x 2 and hour long albuterol. Saturating 96% at rest. Attempted to get patient from wheelchair to bed, HR increase 125, significant insp and exp wheeze, saturations drop to 89%. tachypnea. Will call Josy Govea for admission. blood cultures, will give dose of doxycycline. No IV Doxy will give cefepime. attempted 3 times unable to get abg. - Results/Orders Results/Orders: The data reviewed when caring for this patient included: nurse notes, prior records, etc. The history and assessments from nurses notes were reviewed and considered, and the patient's home medication list was also reviewed and considered. My assessment and the results of testing completed here in the ED were discussed with the patient/family. All questions were answered, and they express understanding of my assessment and the plan. They have been instructed to return if their symptoms worsen, and have been asked to follow up with their primary care physician to recheck today's presenting complaint. Strict return precautions given. I have reviewed medication, benefits, alternatives and side effects. Patient decided to proceed with medication. Nova Hernandez DO #[id number] 07/23/20 11:58 RAPID SARS-CoV-2 RNA Stat 07/23/20 12:00 EKG STAT Pulse Ox, Continuous Monitoring STAT 07/23/20 14:00 Albuterol Sulfate Nebs [Proventil Nebs] 10 mg NEB CONTINUOUS 07/23/20 15:19 BLOOD CULTURE Stat 07/23/20 15:20 ED Intent to Admit Routine 07/23/20 15:21 Cefepime [Maxipime] 1 gm Sodium Chloride 0.9% 50Ml [NS 50ml] 50 ml IVPB ONCE 07/24/20 12:00 Pulse Ox, Continuous Monitoring STAT 07/25/20 12:00 Pulse Ox, Continuous Monitoring STAT Laboratory Results WBC 6.6 K/mm3 (4.8-10.8) 07/23/20 12:05 RBC 3.69 M/mm3 (4.20-5.40) L 07/23/20 12:05 Hgb 11.9 gm/dL (12.0-16.0) L 07/23/20 12:05 Hct 33.4 % (36.0-47.0) L 07/23/20 12:05 MCV 90.6 fl (81.0-99.0) 07/23/20 12:05 MCH 32.4 pg (27.0-31.0) H 07/23/20 12:05 MCHC 35.7 g/dL (33.0-37.0) 07/23/20 12:05 RDW 15.1 % (11.5-14.5) H 07/23/20 12:05 Plt Count 170 K/mm3 (130-400) 07/23/20 12:05 MPV 8.9 fl (7.40-10.4) 07/23/20 12:05 Absolute Neuts (auto) 4.20 K/uL (1.8-6.8) 07/23/20 12:05 Absolute Lymphs (auto) 1.50 K/uL (1.0-3.4) 07/23/20 12:05 Absolute Monos (auto) 0.60 K/uL (0.2-0.8) 07/23/20 12:05 Absolute Eos (auto) 0.30 K/uL (0.0-0.4) 07/23/20 12:05 Absolute Basos (auto) 0.00 K/uL (0.0-0.1) 07/23/20 12:05 Neutrophils % 62.8 % (42.0-78.0) 07/23/20 12:05 Lymphocytes % 22.6 % (20.0-50.0) 07/23/20 12:05 Monocytes % 9.0 % (2.0-9.0) 07/23/20 12:05 Eosinophils % 4.9 % (1.0-5.0) 07/23/20 12:05 Basophils % 0.7 % (0.0-2.0) 07/23/20 12:05 PT 10.1 SECONDS (9.0-10.9) 07/23/20 12:05 INR 1.02 (0.9-1.15) 07/23/20 12:05 PTT (SP) 23.4 SECONDS (21.8-31.6) 07/23/20 12:05 D-Dimer, Quantitative 2730.0 ng/ml (131-400) H* 07/23/20 12:05 Sodium 139 mmol/L (135-145) 07/23/20 12:05 Potassium 4.0 mmol/L (3.6-5.0) 07/23/20 12:05 Chloride 103 mmol/L (101-111) 07/23/20 12:05 Carbon Dioxide 25 mmol/L (21-31) 07/23/20 12:05 Anion Gap 15.0 (12-18) 07/23/20 12:05 BUN 17 mg/dL (7-18) 07/23/20 12:05 Creatinine 1.31 mg/dL (0.6-1.3) H 07/23/20 12:05 BUN/Creatinine Ratio 13.0 (10-20) 07/23/20 12:05 Random Glucose 116 mg/dL (70-105) H 07/23/20 12:05 Serum Osmolality 280.1 mOsm/L (275-295) 07/23/20 12:05 Calcium 8.2 mg/dL (8.4-10.2) L 07/23/20 12:05 Magnesium 1.7 mg/dL (1.8-2.5) L 07/23/20 12:05 Total Bilirubin 0.6 mg/dL (0.2-1.0) 07/23/20 12:05 AST 19 IU/L (10-42) 07/23/20 12:05 ALT 12 IU/L (10-60) 07/23/20 12:05 Alkaline Phosphatase 81 IU/L (42-121) 07/23/20 12:05 LD Total 164 IU/L (91-180) 07/23/20 12:05 Creatine Kinase 45 IU/L (26-140) 07/23/20 12:05 Troponin I < 0.02 ng/mL (0.01-0.05) 07/23/20 12:05 C-Reactive Protein < 0.8 mg/dL (0-1.0) 07/23/20 12:05 B-Natriuretic Peptide 84.8 pg/ml (0-100) 07/23/20 12:05 Serum Total Protein 7.2 gm/dL (6.4-8.2) 07/23/20 12:05 Albumin 3.1 g/dl (3.2-5.5) L 07/23/20 12:05 Globulin 4.1 gm/dL (2.3-3.5) H 07/23/20 12:05 Albumin/Globulin Ratio 0.8 (1.1-1.9) L 07/23/20 12:05 - EKG/XRAY/CT EKG: Sinus Comments: normal intervals, no stemi. LPFB XRAY: chest - no acute pathology CT: negative for PE, 8 mm pulmonary nodule Departure - Departure Clinical Impression: COPD exacerbation Disposition: Admit Patient Departure Forms: ED Discharge - Pt. Copy, Patient Portal Self Enrollment Home Medications: Ambulatory Orders Lisinopril 20 mg PO DAILY 01/30/13 predniSONE [PredniSONE] 2 mg PO DAILY 01/30/13 Warfarin Sodium [Coumadin] 6 mg PO DAILY 04/22/14 amLODIPine BESYLATE [Norvasc] 5 mg PO DAILY 04/22/14 Furosemide [Lasix] 40 mg PO DAILY 06/07/14 Aspirin [Aspirin Adult Low Dose] 81 mg PO DAILY 04/28/16 Potassium Chloride [Potassium Chloride ER] 10 meq PO DAILY 07/18/16 Citalopram Hydrobromide [Citalopram] 20 mg PO BEDTIME 03/17/20 Montelukast [Singulair] 10 mg PO DAILY 03/17/20 Promethazine W/Codeine Syr [Phenergan With Codeine Syrup] 5 ml PO TID PRN #60 ml 03/17/20 Simvastatin [Zocor] 20 mg PO BEDTIME 03/17/20 Albuterol Inhaler [Ventolin Hfa Inhaler] 2 puff INH Q6H PRN #1 inh 04/15/20 Amoxicillin & Pot Clavulanate [Augmentin] 875 mg PO BID #20 tab 04/15/20 Methylprednisolone [Medrol Dose Dawit] 4 mg PO DAILY #1 tab 04/15/20 Decision To Admit - Decistion To Admit Decision to Admit Reason: Medical Nature Decision to Admit Date: 07/23/20 Decision to Admit Time: 14:45
[2020-07-23] MEDS ORDERED: methylPREDNISolone SODIUM SUC 125 MG/2 ML VIAL IV ONE (12:43)
--- NOTE | 2020-07-23 12:59 | RAD ---
EXAM DESCRIPTION: Chest,1 View CLINICAL HISTORY: 75 years Female, sob COMPARISON: April 15, 2020 TECHNIQUE: AP portable chest. FINDINGS: Lungs are clear. No consolidation. Heart normal size. Right side subclavian port with its tip in the SVC unchanged. IMPRESSION: Normal. Electronically signed by: Colton Pettit MD 07/23/2020 12:58 PM MACHINE CELL TUBER
[2020-07-23] MEDS ORDERED: SODIUM CHLORIDE 0.9% 500ML 500 ML IVS ONE (13:17)
[2020-07-23] MEDS ORDERED: IPRATROPIUM/ALBUTEROL 3 ML VIAL NEB ONE ×2 (13:34→15:06)
--- NOTE | 2020-07-23 13:48 | CT ---
EXAM DESCRIPTION: CTA Chest CLINICAL HISTORY: 75 years Female, sob TECHNIQUE: Volumetric CT angiographic data acquisition of the thorax was obtained. Standard axial and CT angiographic MIP sagittal and coronal images are submitted. This exam was performed according to our departmental dose-optimization program, which includes automated exposure control, adjustment of the mA and/or kV according to patient size and/or use of iterative reconstruction technique. COMPARISON: April 15, 2020 FINDINGS: The thyroid gland is unremarkable. No axillary adenopathy. Atherosclerotic plaque in the thoracic aorta. Right chest wall port tip within the SVC. No pericardial effusion. Cholelithiasis. No evidence of acute process in the visualized upper abdomen. Small hiatal hernia. No mediastinal adenopathy. Suboptimal contrast bolus timing. The segmental and subsegmental pulmonary arteries cannot be assessed. There is no central pulmonary embolus. Emphysema with a preferential upper lobe distribution. No focal consolidation. Irregular 8 mm solid noncalcified left upper lobe pulmonary nodule. No pneumothorax. No pleural effusion. No acute or suspicious osseous abnormality. Scattered degenerative changes present. IMPRESSION: 1. Limited evaluation. No central pulmonary embolus. 2. Left upper lobe pulmonary nodule measuring 8 mm. According to the most recent Fleischner Society Pulmonary Nodule Guidelines ( DOI: http://dx.doi.org/10.1148/radiol.3297004780 ), for a single solid nodule measuring 6-8 mm, recommend initial CT at 6-12 months and then at 18-24 months if no change. Electronically signed by: Anthony Main MD 07/23/2020 1:47 PM RETAIL AND [employer]OM[employer]IONS COORDINATOR
[2020-07-23] MEDS ORDERED: ALBUTEROL SULFATE 2.5 MG/3 ML VIAL NEB SCH (14:00)
[2020-07-23] MEDS ORDERED: CEFEPIME 1 GM in SODIUM CHLORIDE 0.9% 50ML 50 ML IVPB ONE (15:21)
--- NOTE | 2020-07-23 15:41 | HP ---
SUPERVISING PHYSICIAN: Reji Stallworth MD CHIEF COMPLAINT: Shortness of breath. HISTORY OF PRESENT ILLNESS: This is a 75-year-old female patient who has a history of chronic obstructive pulmonary disease and hypogammaglobulinemia. She came into the Emergency Room due to shortness of breath due to her hypogammaglobulinemia. She requires monthly treatments at a terrestrial ecologist in [place]. She does not wear oxygen because it is ineffective and at rest, her O2 saturations are in the low 90s, but with any exertion or movement, her O2 saturations drop into the mid 80s. Her initial vital signs at rest in the Emergency Room were temperature 98.2, heart rate 88, blood pressure 167/80, respiratory rate 24, O2 saturation 96% on room air. With exertion, her O2 saturations dropped to the mid 80s and her heart rate goes up to the 100s and she becomes visibly tachypneic as well as increased work of breathing. She is chronically on prednisone. She is also very depressed as her brother of COVID on Tuesday and the is on . Her lab studies showed WBC 6.6, hemoglobin 11.9, hematocrit 33.4. D-dimer was 2,730. Electrolytes were basically within normal limits with the exception of her magnesium was 1.7. Creatinine was 1.31. Urinalysis is unremarkable. Blood cultures were drawn. Her COVID testing was negative. Chest x-ray was normal. CTA of the chest shows 1) Limited evaluation. No central pulmonary embolus. 2) Left upper lobe pulmonary nodule measuring 8 mm. Initially, doxycycline was ordered. There was none available, so she received cefepime. She also received some IV steroids as well as a one hour continuous breathing treatment and then multiple DuoNeb treatments afterwards. She was admitted to the hospital for exacerbation of chronic obstructive pulmonary disease with complications by hypogammaglobulinemia. PAST MEDICAL HISTORY: 1. Hypertension. 2. Asthma. 3. Chronic obstructive pulmonary disease. 4. Gastroesophageal reflux disease. 5. Cerebrovascular accident in 2012 with residual right sided weakness. 6. Deep venous thrombosis requiring inferior vena cava filter placement. 7. Hypogammaglobulinemia. She is presently on IVIG monthly treatments. PAST SURGICAL HISTORY: 1. Hysterectomy. 2. Hernia repair. 3. Right and left shoulder surgery. 4. IVC filter placement. 5. Cataract surgery. 6. Right total knee arthroplasty. 7. Right subclavian port placement. OUTPATIENT MEDICATIONS: Per the EMR. ALLERGIES: NO KNOWN DRUG ALLERGIES. FAMILY HISTORY: Positive for myocardial infarction, lung cancer. SOCIAL HISTORY: She lives in [place]. She is . She has three children. She quit cigarette smoking in 2008. She denies any ETOH or illicit drug use. REVIEW OF SYSTEMS: GENERAL: Negative for fever, chills or weight changes. HEENT: Negative for sinus symptoms, ear pain, vision changes or sore throat. RESPIRATORY: Positive for coughing, wheezing and shortness of breath. CARDIAC: Negative for chest pain, palpitations or tachycardia. GASTROINTESTINAL: Negative for nausea, vomiting, diarrhea, constipation or abdominal pain. GENITOURINARY: Negative for hematuria, dysuria or polyuria. MUSCULOSKELETAL: Negative for arthralgias, myalgias. SKIN: Negative for lesions or rashes. NEUROLOGIC: Negative for headache, weakness or seizures. PHYSICAL EXAMINATION: VITAL SIGNS: Temperature 97.9, heart rate 105, blood pressure 144/58, respiratory rate 22, O2 saturation 97% on 2 liters nasal cannula. GENERAL: This is a 75-year-old obese female who is lying in her hospital bed. She is in mild respiratory distress. When she exerts herself, she is in moderate respiratory distress. HEENT: Normocephalic, atraumatic. Pupils are equal and reactive. Oropharynx is clear. NECK: Supple without mass. RESPIRATORY: Bilateral inspiratory and expiratory wheezing throughout with scattered rhonchi. She is tachypneic and has increased work of breathing with any exertion. CARDIOVASCULAR: Regular rate and rhythm. With exertion, she does become tachycardic. GASTROINTESTINAL: Abdomen is soft, nondistended, nontender. Bowel sounds are positive. EXTREMITIES: No cyanosis, clubbing or edema. NEUROLOGIC: Awake, alert and oriented times three. LABORATORY: Labs and films are as per history of present illness. IMPRESSION: 1. Chronic obstructive pulmonary disease with acute exacerbation complicated by exertional hypoxia. 2. Hypogammaglobulinemia. She receives monthly IVIG treatments at a terrestrial ecologist's. 3. Situational depression with underlying chronic depression. 4. Asthma. 5. Gastroesophageal reflux disease. 6. Hypertension. 7. History of cerebrovascular accident. 8. History of deep venous thrombosis. PLAN: The patient has been admitted to the hospital. She will have aggressive pulmonary hygiene including DuoNeb treatments, scheduled as well as albuterol p.r.n. If needed, she can have a continuous treatment. I have started on her Lovenox for DVT prophylaxis and proton pump inhibitor for ulcer prophylaxis. We will also continue on Rocephin and azithromycin. She will also have some scheduled IV steroids. Hopefully in the next day or so we can titrate those off and changer her to oral prednisone. Her home medications will be restarted as soon as they are verified. I will also give her a Xanax as needed. We will do a Finance Analyst consult due to the recent loss in her family. Labs have been ordered for tomorrow. We will continue to monitor the patient closely and follow as needed. #[id number] [facility]
[2020-07-23] MEDS ORDERED: SODIUM CHLORIDE 0.9% (FLUSH) 10 ML SYG IV PRN (18:24)
[2020-07-23] MEDS ORDERED: ONDANSETRON INJ 4 MG/2 ML VIAL IV PRN (18:24)
[2020-07-23] MEDS: AZITHROMYCIN 250 MG TAB PO SCH (20:04)
[2020-07-23] MEDS: IV SET AND CAP CHANGE INJ INJ SCH (20:05)
[2020-07-23] MEDS: ENOXAPARIN SODIUM 40 MG/0.4 ML SYG SUBCU SCH (20:05)
[2020-07-23] MEDS: guaiFENesin ER TAB 600 MG TAB PO SCH (20:05)
[2020-07-23] MEDS: CITALOPRAM HBR 20 MG TAB PO SCH (20:06)
[2020-07-23] MEDS: SODIUM CHLORIDE 0.9% (FLUSH) 10 ML SYG IV SCH (20:06)
[2020-07-23] MEDS: SIMVASTATIN 20 MG TAB PO SCH (20:06)
[2020-07-23] MEDS: IPRATROPIUM/ALBUTEROL 3 ML VIAL INH SCH (20:22)
[2020-07-23] MEDS: methylPREDNISolone SODIUM SUC 40 MG/ML VIAL IV SCH (21:35)
[2020-07-24] MEDS ORDERED: ACETAMINOPHEN 325 MG TAB PO PRN (00:09)
[2020-07-24] MEDS ORDERED: ASPIRIN (ENTERIC COATED) 325 MG TAB PO ONE (05:34)
[2020-07-24] MEDS: methylPREDNISolone SODIUM SUC 40 MG/ML VIAL IV SCH (05:39)
[2020-07-24] MEDS: PANTOPRAZOLE SODIUM IV 40 MG VIAL IV SCH (05:40)
[2020-07-24] MEDS: ALBUTEROL SULFATE 2.5 MG/3 ML VIAL NEB PRN (05:50)
--- NOTE | 2020-07-24 07:27 | RAD ---
Exam(s): XR CHEST 2 VIEWS: 07/24/2020 7:00 AM RN REVIEW Indication: Pneumonia COPD MAIN Comparison Study Date: CT July 23, 2020 Technique: 2 view chest radiograph. Findings: The lungs are hyperinflated, consistent with COPD. The lungs are clear. No evidence of pneumonia. No air space abnormality is identified. No pleural effusion or pneumothorax. Heart size is normal. Normal mediastinal contours. Right subclavian port is intact and terminates within the lower SVC. No bone abnormality is identified. IMPRESSION: COPD. No evidence of pneumonia. Electronically signed by: Holden Richter MD 07/24/2020 7:26 AM RN REVIEW
[2020-07-24] MEDS ORDERED: MAGNESIUM SULFATE PREMIX 2GM 2 GM in PREMIX BAG 1 BAG IVPB ONE (08:22)
[2020-07-24] MEDS ORDERED: NON-FORMULARY MEDICATION 1 EA MIS (Duloxetine Hcl [Cymbalta] 60 MG) PO SCH (09:00)
[2020-07-24] MEDS ORDERED: NON-FORMULARY MEDICATION 1 EA MIS (Lisinopril [Lisinopril] 20 MG) PO SCH (09:00)
[2020-07-24] MEDS ORDERED: predniSONE 5 MG TAB PO SCH (09:00)
[2020-07-24] MEDS: IPRATROPIUM/ALBUTEROL 3 ML VIAL INH SCH ×4 (09:00→20:10)
[2020-07-24] MEDS ORDERED: NON-FORMULARY MEDICATION 1 EA MIS (Furosemide [Lasix] 40 MG) PO SCH (09:00)
[2020-07-24] MEDS ORDERED: MAGNESIUM SULFATE PREMIX 2GM 50 ML IVPB ONE (09:03)
[2020-07-24] MEDS: MONTELUKAST 10 MG TAB PO SCH (09:04)
[2020-07-24] MEDS: ASPIRIN (ENTERIC COATED) 81 MG TAB PO SCH (09:04)
[2020-07-24] MEDS: guaiFENesin ER TAB 600 MG TAB PO SCH ×2 (09:04→20:48)
[2020-07-24] MEDS: LISINOPRIL 10 MG TAB PO SCH (09:04)
[2020-07-24] MEDS: DULoxetine HCL 30 MG CAP PO SCH (09:05)
[2020-07-24] MEDS: SODIUM CHLORIDE 0.9% (FLUSH) 10 ML SYG IV SCH ×2 (09:05→20:48)
[2020-07-24] MEDS: FUROSEMIDE 40 MG TAB PO SCH (10:09)
[2020-07-24] MEDS: cefTRIAXone SODIUM 1 GM in SODIUM CHL 0.9% 50ML MIN-BAG+ 50 ML IVPB SCH (10:09)
[2020-07-24] MEDS ORDERED: ALPRAZolam 0.25 MG TAB PO PRN (10:26)
[2020-07-24] MEDS ORDERED: RACEPINEPHRINE 2.25% 0.5 ML UD NEB PRN (12:29)
--- NOTE | 2020-07-24 13:29 | PN ---
SUPERVISING PHYSICIAN: Reji Stallworth MD DATE: 07/24/20 SUBJECTIVE: The patient is sitting up in bed. She looks more comfortable today than she did yesterday, but she still gets quite short of breath and tachypneic with any exertion. She denies chest pain, nausea or vomiting. OBJECTIVE: VITAL SIGNS: Temperature 98, heart rate 75, blood pressure 145/75, respiratory rate 19 to 24. O2 saturation 94% on room air. RESPIRATORY: Expiratory wheezing throughout with scattered rhonchi. She is tachypneic with any exertion. CARDIAC: Regular rate and rhythm. NEUROLOGIC: Awake, alert and oriented times three. LABORATORY: WBCs 8.6, hemoglobin 11.3, hematocrit 32.1. She has a left shift on her differential. Electrolytes are basically within normal limits. RADIOLOGY: Chest x-ray shows chronic obstructive pulmonary disease, no evidence of pneumonia. All other labs and films have been reviewed via the EMR. ASSESSMENT: 1. Chronic obstructive pulmonary disease with acute exacerbation complicated by exertional hypoxia. 2. Hypogammaglobulinemia. She receives monthly IVIG treatments at a breeding technician's. 3. Situational depression with underlying chronic depression. 4. Asthma. 5. Gastroesophageal reflux disease. 6. Hypertension. 7. History of cerebrovascular accident. 8. History of deep venous thrombosis. PLAN: We will continue present supportive care. I have continued her IV Solu- Medrol and that may need to be continued tomorrow, but at this time, I have titrated it off and started her on oral prednisone tomorrow. She may need a longer treatment. I have also given her some magnesium supplementation and ordered some lab for in the morning. We will monitor and treat as needed. #[id number] ADDENDUM: Patient becomes hypoxic with incentive spirometry and IPPB. Will hold on those treatments until evaluated tomorrow. I have also increase her IV steroids and those can also be titrated tomorrow. O2 sats have been 93-96% on room air at rest, but with any exertion she de-sats to mid 80s. MTDD
[2020-07-24] MEDS ORDERED: methylPREDNISolone SODIUM SUC 40 MG/ML VIAL IV SCH (14:00)
[2020-07-24] MEDS ORDERED: methylPREDNISolone SODIUM SUC 40 MG/ML VIAL IV ONE (20:27)
[2020-07-24] MEDS: AZITHROMYCIN 250 MG TAB PO SCH (20:46)
[2020-07-24] MEDS: CITALOPRAM HBR 20 MG TAB PO SCH (20:47)
[2020-07-24] MEDS: SIMVASTATIN 20 MG TAB PO SCH (20:47)
[2020-07-24] MEDS: BIFIDOBACTERIUM INFANTIS 4 MG CAP PO SCH (20:47)
[2020-07-24] MEDS: ENOXAPARIN SODIUM 40 MG/0.4 ML SYG SUBCU SCH (20:48)
[2020-07-24] MEDS: methylPREDNISolone SODIUM SUC 125 MG/2 ML VIAL IV SCH (23:58)
[2020-07-25] MEDS: ALBUTEROL SULFATE 2.5 MG/3 ML VIAL NEB PRN ×2 (00:52→04:25)
[2020-07-25] MEDS: methylPREDNISolone SODIUM SUC 125 MG/2 ML VIAL IV SCH ×4 (05:29→23:41)
[2020-07-25] MEDS: PANTOPRAZOLE SODIUM IV 40 MG VIAL IV SCH (05:30)
--- NOTE | 2020-07-25 08:29 | RAD ---
EXAM DESCRIPTION: Chest,2 Views CLINICAL HISTORY: [facility] COMPARISON: Previous chest x-ray July 24, 2020 TECHNIQUE: PA/lateral FINDINGS: Prominent vascularity in the mid and lower lung zones similar to previous study. Heart size is normal with normal pulmonary vascularity. No pleural effusion or pneumothorax. Lungs are clear with no consolidating infiltrate. Lateral view shows intact sternum and T-spine. IMPRESSION: No consolidating infiltrate. Electronically signed by: Emmanuel Ramey MD 07/25/2020 8:27 AM [facility]
[2020-07-25] MEDS: IPRATROPIUM/ALBUTEROL 3 ML VIAL INH SCH ×4 (08:55→19:45)
[2020-07-25] MEDS ORDERED: predniSONE 20 MG TAB PO SCH (09:00)
[2020-07-25] MEDS: cefTRIAXone SODIUM 1 GM in SODIUM CHL 0.9% 50ML MIN-BAG+ 50 ML IVPB SCH (09:42)
[2020-07-25] MEDS: BIFIDOBACTERIUM INFANTIS 4 MG CAP PO SCH ×2 (09:42→20:36)
[2020-07-25] MEDS: DULoxetine HCL 30 MG CAP PO SCH (09:42)
[2020-07-25] MEDS: MONTELUKAST 10 MG TAB PO SCH (09:43)
[2020-07-25] MEDS: FUROSEMIDE 40 MG TAB PO SCH (09:43)
[2020-07-25] MEDS: ASPIRIN (ENTERIC COATED) 81 MG TAB PO SCH (09:43)
[2020-07-25] MEDS: SODIUM CHLORIDE 0.9% (FLUSH) 10 ML SYG IV SCH ×2 (09:43→23:41)
[2020-07-25] MEDS: LISINOPRIL 10 MG TAB PO SCH (09:43)
[2020-07-25] MEDS: guaiFENesin ER TAB 600 MG TAB PO SCH ×2 (09:43→20:43)
[2020-07-25] MEDS ORDERED: POLYETHYLENE GLYCOL 3350 17 GM PCKT ONE (11:16)
[2020-07-25] MEDS ORDERED: POLYETHYLENE GLYCOL 3350 17 GM PCKT PO ONE (11:20)
--- NOTE | 2020-07-25 19:27 | PN ---
SUPERVISING PHYSICIAN: Reji Stallworth MD DATE: 07/25/20 SUBJECTIVE: The patient is resting in bed. It was reported last night that she had a little bit of desaturations through the night, but she seems to be doing okay this morning. She has no significant complaint other than she just does not feel well. OBJECTIVE: VITAL SIGNS: Temperature 98, pulse 74, blood pressure 153/74, respirations 18, saturation 99% on room air. GENERAL: The patient is resting comfortably. CHEST: I am not hearing any wheezing this morning. She is a little tachypneic with exertion, but not in respiratory distress. HEART: Regular rate and rhythm. ABDOMEN: Soft, nontender. Positive bowel sounds. EXTREMITIES: No edema. NEUROLOGIC: Alert and oriented times three. LABORATORY: White count 11,800, hemoglobin 11.1, hematocrit 32.3, platelet count 162,000. Differential shows a left shift. Chemistries show sodium 134, potassium 4.7, creatinine 1.48. Liver functions all within normal limits. MICROBIOLOGY: Blood cultures are negative at 48 hours. RADIOLOGY: Chest x-ray this per radiologic interpretation no consolidative infiltrates seen. ASSESSMENT: 1. Chronic obstructive pulmonary disease with acute exacerbation complicated by exertional hypoxia. 2. Hypogammaglobulinemia. She receives monthly IVIG treatments at a contact manager's. 3. Situational depression with underlying chronic depression. 4. Asthma. 5. Gastroesophageal reflux disease. 6. Hypertension. 7. History of cerebrovascular accident. 8. History of deep venous thrombosis. PLAN: We will continue current plan of care with azithromycin, Rocephin, Solu- Medrol 60 mg q.12h. We will work to titrate that down. She remains on Protonix, Align and Lovenox. We will work to titrate her Solu-Medrol down to oral prednisone hopefully tomorrow. We will repeat an x-ray in the morning and check labs. Hopefully we will be able to discharge her home in the next 24 to 48 hours. Until then, we will continue to monitor and treat as needed. #[id number] [facility]
[2020-07-25] MEDS ORDERED: BUDESONIDE NEBS 0.5 MG/2 ML INH NEB ONE (19:42)
[2020-07-25] MEDS: BUDESONIDE NEBS 0.5 MG/2 ML INH NEB SCH (19:45)
[2020-07-25] MEDS ORDERED: SIMVASTATIN 10 MG TAB PO ONE (20:29)
[2020-07-25] MEDS: AZITHROMYCIN 250 MG TAB PO SCH (20:35)
[2020-07-25] MEDS: CITALOPRAM HBR 20 MG TAB PO SCH (20:36)
[2020-07-25] MEDS: SIMVASTATIN 20 MG TAB PO SCH (20:38)
[2020-07-25] MEDS: ENOXAPARIN SODIUM 40 MG/0.4 ML SYG SUBCU SCH (20:39)
[2020-07-25] MEDS ORDERED: PROMETHAZINE W/CODEINE SYR 5 ML UD PO ONE (22:22)
[2020-07-25] MEDS: PROMETHAZINE W/CODEINE SYR 5 ML UD PO PRN (22:30)
[2020-07-26] MEDS: PANTOPRAZOLE SODIUM IV 40 MG VIAL IV SCH (06:10)
[2020-07-26] MEDS: methylPREDNISolone SODIUM SUC 125 MG/2 ML VIAL IV SCH ×4 (06:10→23:58)
[2020-07-26] MEDS: ASPIRIN (ENTERIC COATED) 81 MG TAB PO SCH (09:05)
[2020-07-26] MEDS: FUROSEMIDE 40 MG TAB PO SCH (09:05)
[2020-07-26] MEDS: BIFIDOBACTERIUM INFANTIS 4 MG CAP PO SCH ×2 (09:05→20:05)
[2020-07-26] MEDS: DULoxetine HCL 30 MG CAP PO SCH (09:05)
[2020-07-26] MEDS: MONTELUKAST 10 MG TAB PO SCH (09:05)
[2020-07-26] MEDS: LISINOPRIL 10 MG TAB PO SCH (09:05)
[2020-07-26] MEDS: guaiFENesin ER TAB 600 MG TAB PO SCH ×2 (09:05→20:05)
[2020-07-26] MEDS: cefTRIAXone SODIUM 1 GM in SODIUM CHL 0.9% 50ML MIN-BAG+ 50 ML IVPB SCH (09:05)
[2020-07-26] MEDS: SODIUM CHLORIDE 0.9% (FLUSH) 10 ML SYG IV SCH ×2 (09:06→20:05)
[2020-07-26] MEDS: PROMETHAZINE W/CODEINE SYR 5 ML UD PO PRN ×3 (09:26→23:59)
[2020-07-26] MEDS ORDERED: PROMETHAZINE W/CODEINE SYR 5 ML UD PO ONE ×3 (09:26→22:24)
[2020-07-26] MEDS ORDERED: BUDESONIDE NEBS 0.5 MG/2 ML INH NEB ONE ×2 (09:27→19:41)
[2020-07-26] MEDS ORDERED: IPRATROPIUM/ALBUTEROL 3 ML VIAL NEB ONE (09:27)
[2020-07-26] MEDS: IPRATROPIUM/ALBUTEROL 3 ML VIAL INH SCH ×4 (10:20→20:52)
[2020-07-26] MEDS: BUDESONIDE NEBS 0.5 MG/2 ML INH NEB SCH ×2 (10:20→20:52)
[2020-07-26] MEDS ORDERED: SODIUM CHLORIDE 0.9% 1000ML 1,000 ML ONE ×2 (12:57→22:24)
--- NOTE | 2020-07-26 13:06 | PN ---
SUPERVISING PHYSICIAN: Reji Stallworth MD DATE: 07/26/20 SUBJECTIVE: The patient is still a little bit short of breath this morning on initial entry in the room. The patient was also wheezing and I could hear it across the room. She did have ambulation studies showing desaturations in the low 80s with any extra effort. She does recover quite quickly but she does get distressed a little bit with ambulation. I discussed plan of care with her to keep her at least another 24 hours to see if we can get her off the IV steroids and continue to work with her aggressively on her pulmonary hygiene. She will probably need to go on oxygen status prior to discharge. OBJECTIVE: VITAL SIGNS: Temperature 97.6, pulse 90, blood pressure 126/67, respirations 18, saturation 99% on room air at rest but with ambulation she goes down into the low 80s, in fact, she went to 82%. She did recover fairly quickly but does get a little distressed. GENERAL: The patient is resting comfortably. CHEST: She has some audible inspiratory expiratory wheezes, more prominent with expiratory than inspiratory but looks to be in no acute distress at rest. Lung sounds are diminished throughout. HEART: Regular rate and rhythm. ABDOMEN: Soft, nontender. Positive bowel sounds. EXTREMITIES: No edema. NEUROLOGIC: Alert and oriented times three. LABORATORY: White count 11,200, hemoglobin 11.0, hematocrit 32.3, platelet count 172,000. Differential shows a left shift. D-dimer was elevated on admission at 2730. Chemistries show sodium 133, potassium 5.1, creatinine 1.62, calcium 8.8. RADIOLOGY: Chest x-ray was not repeated today. . ASSESSMENT: 1. Chronic obstructive pulmonary disease with acute exacerbation complicated by exertional hypoxia. 2. Elevated D-dimer, with negative CTA of the chest for PE with history of previous deep venous thrombus. 3. Hypogammaglobulinemia. 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 4. Situational depression with underlying chronic depression. 5. Asthma. 6. Gastroesophageal reflux disease. 7. Hypertension. 8. History of cerebrovascular accident. 9. History of deep venous thrombosis. PLAN: We will continue to treat the patient for asthma exacerbation. Given her history of deep venous thrombosis with elevated D-dimer, I am going to go ahead and increase her Lovenox and base if off of renal function with concerns for possible pulmonary embolus. I anticipate at least another 24-48 hours before we can discharge her to make sure she is stable. She may need to go on home on oxygen. Hopefully her renal function can improve. Will go ahead and try to give her a little bit of fluids to see if that will help her renal function improve with anticipation of having to discharge home on Eliquis.. Until then, we will continue to monitor and treat as needed. #[id number] [facility]
[2020-07-26] MEDS: SODIUM CHLORIDE 0.9% 1000ML 1,000 ML IVS PRN (13:11)
[2020-07-26] MEDS: IV SET AND CAP CHANGE INJ INJ SCH (18:20)
[2020-07-26] MEDS ORDERED: ENOXAPARIN SODIUM 100 MG/ML SYG SUBCU ONE (19:06)
[2020-07-26] MEDS ORDERED: ENOXAPARIN SODIUM 30 MG/0.3 ML SYG SUBCU ONE (19:08)
[2020-07-26] MEDS ORDERED: SIMVASTATIN 10 MG TAB PO ONE (19:08)
[2020-07-26] MEDS: AZITHROMYCIN 250 MG TAB PO SCH (19:38)
[2020-07-26] MEDS: CITALOPRAM HBR 20 MG TAB PO SCH (20:05)
[2020-07-26] MEDS: SIMVASTATIN 20 MG TAB PO SCH (20:05)
[2020-07-26] MEDS: ENOXAPARIN SODIUM 100 MG/ML SYG SUBCU SCH (21:42)
[2020-07-27] MEDS: SODIUM CHLORIDE 0.9% 1000ML 1,000 ML IVS PRN (01:30)
[2020-07-27] MEDS ORDERED: PROMETHAZINE W/CODEINE SYR 5 ML UD PO ONE ×2 (03:02→11:55)
[2020-07-27] MEDS: PROMETHAZINE W/CODEINE SYR 5 ML UD PO PRN ×2 (04:56→12:02)
[2020-07-27] MEDS: methylPREDNISolone SODIUM SUC 125 MG/2 ML VIAL IV SCH ×2 (06:00→12:00)
[2020-07-27] MEDS: PANTOPRAZOLE SODIUM IV 40 MG VIAL IV SCH (06:00)
[2020-07-27] MEDS ORDERED: BUDESONIDE NEBS 0.5 MG/2 ML INH NEB ONE (08:13)
[2020-07-27] MEDS: IPRATROPIUM/ALBUTEROL 3 ML VIAL INH SCH ×2 (08:50→12:30)
[2020-07-27] MEDS: BUDESONIDE NEBS 0.5 MG/2 ML INH NEB SCH (08:50)
[2020-07-27] MEDS: BIFIDOBACTERIUM INFANTIS 4 MG CAP PO SCH (08:58)
[2020-07-27] MEDS: ASPIRIN (ENTERIC COATED) 81 MG TAB PO SCH (08:58)
[2020-07-27] MEDS: FUROSEMIDE 40 MG TAB PO SCH (08:59)
[2020-07-27] MEDS: DULoxetine HCL 30 MG CAP PO SCH (08:59)
[2020-07-27] MEDS: LISINOPRIL 10 MG TAB PO SCH (09:00)
[2020-07-27] MEDS: guaiFENesin ER TAB 600 MG TAB PO SCH (09:00)
[2020-07-27] MEDS: MONTELUKAST 10 MG TAB PO SCH (09:01)
[2020-07-27] MEDS ORDERED: ENOXAPARIN SODIUM 100 MG/ML SYG SUBCU ONE (10:05)
[2020-07-27] MEDS ORDERED: ENOXAPARIN SODIUM 30 MG/0.3 ML SYG SUBCU ONE (10:06)
[2020-07-27] MEDS: ENOXAPARIN SODIUM 100 MG/ML SYG SUBCU SCH (10:10)
[2020-07-27] MEDS: cefTRIAXone SODIUM 1 GM in SODIUM CHL 0.9% 50ML MIN-BAG+ 50 ML IVPB SCH (10:13)
[2020-07-27] MEDS ORDERED: AZITHROMYCIN 250 MG TAB PO ONE ×2 (12:52→13:44)
[2020-07-27 14:10] VITALS: BP 154/69; TEMP 97.8; O2SAT 99
--- NOTE | 2020-07-28 08:11 | DS ---
SUPERVISING PHYSICIAN: Reji Stallworth MD ADMISSION DIAGNOSIS: 1. Chronic obstructive pulmonary disease with acute exacerbation complicated by exertional hypoxia. 2. Hypogammaglobulinemia. 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 3. Situational depression with underlying chronic depression. 4. Asthma. 5. Gastroesophageal reflux disease. 6. Hypertension. 7. History of cerebrovascular accident. 8. History of deep venous thrombosis. DISCHARGE DIAGNOSIS: 1. Chronic obstructive pulmonary disease with component of asthma with acute exacerbation complicated by exertional hypoxia, showing improvement on discharge. 2. Elevated D-dimer, with negative CTA of the chest for pulmonary embolus with history of previous deep venous thrombus, discharged on Eliquis. 3. Hypogammaglobulinemia. 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 4. Situational depression with underlying chronic depression. 5. Gastroesophageal reflux disease. 6. Hypertension. 7. History of cerebrovascular accident. 8. History of deep venous thrombosis. REASON FOR HOSPITALIZATION: This is a 75-year-old female patient who has a history of chronic obstructive pulmonary disease and hypogammaglobulinemia. She came into the Emergency Room due to shortness of breath due to her hypogammaglobulinemia. She requires monthly treatments at a testboard operator in [place]. She does not wear oxygen because it is ineffective and at rest, her O2 saturations are in the low 90s, but with any exertion or movement, her O2 saturations drop into the mid 80s. Her initial vital signs at rest in the Emergency Room were temperature 98.2, heart rate 88, blood pressure 167/80, respiratory rate 24, O2 saturation 96% on room air. With exertion, her O2 saturations dropped to the mid 80s and her heart rate goes up to the 100s and she becomes visibly tachypneic as well as increased work of breathing. She is chronically on prednisone. She is also very depressed as her brother of COVID on Tuesday and the is on . Her lab studies showed WBC 6.6, hemoglobin 11.9, hematocrit 33.4. D-dimer was 2,730. Electrolytes were basically within normal limits with the exception of her magnesium was 1.7. Creatinine was 1.31. Urinalysis is unremarkable. Blood cultures were drawn. Her COVID testing was negative. Chest x-ray was normal. CTA of the chest shows 1) Limited evaluation. No central pulmonary embolus. 2) Left upper lobe pulmonary nodule measuring 8 mm. Initially, doxycycline was ordered. There was none available, so she received cefepime. She also received some IV steroids as well as a one hour continuous breathing treatment and then multiple DuoNeb treatments afterwards. She was admitted to the hospital for exacerbation of chronic obstructive pulmonary disease with complications by hypogammaglobulinemia. LABORATORY: White count on discharge was 9,000, hemoglobin 10.7, hematocrit 31.3, platelet count 157,000. Differential did show a continued left shift. Coagulation studies showed a D-dimer initially on admission of 2730 and was down to 834 prior to discharge. PT/PTT were normal. Chemistries showed normal electrolytes on discharge. Creatinine 1.38, BUN 41, calcium 8.4. Liver functions were all within normal limits. C-reactive protein was less than 0.8, troponin less than 0.02. BNP normal at 84. Urinalysis was unremarkable. MICROBIOLOGY: Blood cultures were negative after 4 days with no growth. Sputum culture was still pending. She had a nasal swab which was negative for COVID. RADIOLOGY: CT of the chest on admission per radiologic interpretation showed no central pulmonary embolus. There is note of left upper lobe pulmonary nodule which will need to be followed up as an outpatient on recommendations. Final chest x-ray on 07/25/20 showed no consolidative infiltrates. Echocardiogram performed during hospitalization showed a mild left ventricular dilation with ejection fraction approximately 60-65%. HOSPITAL COURSE: Ms. Suazo was admitted for exacerbation of chronic obstructive pulmonary disease with a component of asthma. She was negative for COVID. She was treated aggressively with Solu-Medrol antibiotic coverage with azithromycin and Rocephin. She did have an elevated D-dimer on admission, but CTA was negative for pulmonary embolus, but given her history, I went ahead and started her on Lovenox 1 mg per kg for possible PE versus deep venous thrombosis. On the day of discharge, she was showing good improvement. She was not requiring any oxygen. She was actually no requiring oxygen with ambulation. Her vital signs at discharge showed she was afebrile at 97.8, pulse 96, blood pressure 154/69, saturation 99% on room air with represents 20. I did discuss with Dr. Stallworth the patient's D-dimer history and recommendations for Eliquis, therefore, the patient was found clinically stable enough to discharge home with continued treatment with Eliquis and further treatment for underlying exacerbation and concern for pneumonia. While in the hospital, she was started on Eliquis prior to discharge and given that she was COVID negative, she was not started on Remdesivir. PLAN: Ms. Suazo was discharged on 07/27/20 with instructions to call Dr. Harrison' on discharge to schedule followup appointment. She was given instructions to take her home medications as directed including the Eliquis, for which she was given a prescription for 2 weeks of 5 mg, but she will need followup prior to that for continuation of Eliquis based on appointment with Dr. Harrison. She was to resume her normal diet and increase her activity as tolerated. MEDICATIONS PRESCRIBED ON DISCHARGE: 1. Align 4 mg twice daily as needed. 2. Eliquis 5 mg twice daily, #20, no refills. 3. Medrol Dosepak 4 mg tablets for 6 days, #21, no refills. 4. Mucinex 600 mg twice daily for at least 7 days. 5. Cefdinir 300 mg twice daily, #10. 6. Cough suppressant in the form of Phenergan with codeine, 5 mL orally q.4h. as needed, 4 oz, no refills. DISPOSITION: The patient was discharged home. CONDITION ON DISCHARGE: Stable and improved. #[id number] [facility]
== END 2020-07-27 13:45 | disposition home or self-care (01) | DRG 191 ==
LOC: ER 11:17 → OBSVTOIN 15:39 → MS 15:39
PROVIDERS: ADMIT Nurse Practitioner Acute Care; ATTEND Nurse Practitioner Family
PROC: B32T1ZZ Computerized Tomography (CT Scan) of Left Pulmonary Artery using Low Osmolar Contrast (ICD-10-PCS; principal; 2020-07-23)
PROC: B32S1ZZ Computerized Tomography (CT Scan) of Right Pulmonary Artery using Low Osmolar Contrast (ICD-10-PCS; 2020-07-23)
DX: J44.1 Chronic obstructive pulmonary disease with (acute) exacerbation (principal); D80.1 Nonfamilial hypogammaglobulinemia; I69.351 Hemiplegia and hemiparesis following cerebral infarction affecting right dominant side; R09.02 Hypoxemia; R79.89 Other specified abnormal findings of blood chemistry; K21.9 Gastro-esophageal reflux disease without esophagitis; I10 Essential (primary) hypertension; F32.9 Major depressive disorder, single episode, unspecified; E66.9 Obesity, unspecified; Z86.718 Personal history of other venous thrombosis and embolism; Z79.01 Long term (current) use of anticoagulants; Z95.828 Presence of other vascular implants and grafts; Z96.651 Presence of right artificial knee joint; Z87.891 Personal history of nicotine dependence; Z79.52 Long term (current) use of systemic steroids; Z79.82 Long term (current) use of aspirin; Z79.899 Other long term (current) drug therapy